=== PATIENT | male | born 1960 | race Caucasian/White ===

== ENCOUNTER → 2020-03-16 15:15 | Outpatient (BNVA) | payer MEDICAID, SELFPAY | PROVIDERS: Referring Provider Registered Nurse; Visit Provider Orthopaedic Surgery | DX: M25.569 Pain in unspecified knee (principal); M17.11 Unilateral primary osteoarthritis, right knee | CPT/HCPCS: 73560; 73565 ==

== ENCOUNTER 2021-12-23 19:11 | Emergency (ER) | payer MEDICAID, SELFPAY ==
--- NOTE | 2021-12-23 19:12 | XRR_ITS ---
PROCEDURE INFORMATION: Exam: XR Left Hip Exam date and time: 12/23/2021 7:19 PM Age: 61 years old Clinical indication: Hip pain; Left hip; Additional info: Fall, left hip pain TECHNIQUE: Imaging protocol: XR Left hip. Views: 2 or 3 views hip with pelvis when performed. COMPARISON: No relevant prior studies available. FINDINGS: Bones/joints: Unremarkable. No acute fracture. Soft tissues: Unremarkable. XR/XR hip LT 2-3V wo/w pel* [id number] IMPRESSION: No acute findings.
--- NOTE | 2021-12-23 19:12 | W.ED.GENADLT ---
HPI - General Adult General: Stated complaint: fall hip pain Time Seen by Provider: 12/23/21 19:12 PFSH ED PFSH: Social History Smoking and tobacco status: current every day smoker smokeless tobacco Alcohol intake: current Alcohol intake frequency: holidays/special occasions only Discharge Plan Discharge Condition: Stable Prescriptions: No Action No Known Home Medications 0RF Coding Level of Care Code ED Customer Support Engineer for Mary Beth Coles
[2021-12-23 19:15] VITALS: BP 136/82; PULSE 104; RESP 18; TEMP 36.7; O2SAT 93; BMI 29.8
--- NOTE | 2021-12-23 19:20 | XRR_ITS ---
PROCEDURE INFORMATION: Exam: XR Lumbosacral Spine Exam date and time: 12/23/2021 7:28 PM Age: 61 years old Clinical indication: Low back pain; Additional info: Fall, low back pain TECHNIQUE: Imaging protocol: XR of the lumbosacral spine. Views: 2 or 3 views. COMPARISON: CR XR hip LT 2-3V wo/w pel* [id number] 12/23/2021 7:19 PM FINDINGS: Bones/joints: Moderate to severe lower lumbar spine disc space narrowing and productive degenerative endplate changes. Soft tissues: Unremarkable. XR/XR lumbar spine 2-3V* [id number] IMPRESSION: 1. Negative for fracture or dislocation 2. Moderate to severe lower lumbar spine disc space narrowing and productive degenerative endplate changes.
--- NOTE | 2021-12-23 19:20 | W.ED.FALL ---
HPI - Fall General: Chief Complaint: Fall Stated Complaint: fall hip pain Time Seen by Provider: 12/23/21 19:12 History of Present Illness: Mr. Resendiz is a 61-year-old gentleman not on anticoagulation who presents due to fall with back and hip injury. He reports that he went to sit down while at the bull riding event and his chair collapsed along with the bleachers. He fell to the ground approximately 3 feet and landed primarily on his low back and left hip. He did immediately have mild pain however was able to ambulate and since that time pain is increased. He denies head strike or loss of consciousness. He denies other injuries. Intensity of pain is moderate and worse with palpation and movement. He did receive analgesia by EMS. He denies distal numbness or tingling. He denies weakness. No other specific changes in health, exacerbating, or alleviating factors identified. Onset (ago): minute(s) Fall from: chair Fall witnessed: yes, by bystander Place fall occurred: other Loss of consciousness: None Prolonged down time: no Symptoms prior to fall: none Review of Systems General: Reports: 10 or more systems reviewed and unremarkable except in HPI and below PFSH ED PFSH: Medical History No significant past medical history Surgical History No significant past surgical history Social History Smoking and tobacco status: current every day smoker smokeless tobacco Alcohol intake: current Alcohol intake frequency: holidays/special occasions only Physical Exam Const: COMMON NORMALS: alert GENERAL APPEARANCE: cooperative and well developed HENMT: COMMON NORMALS: normocephalic and atraumatic HEAD & SCALP: normocephalic and atraumatic Eye: COMMON NORMALS: conjunctivae normal CONJUNCTIVA: Yes conjunctivae normal SCLERA: sclerae normal Neck/C-Spine: COMMON NORMALS: supple GENERAL: Yes trachea midline Resp: COMMON NORMALS: No use of accessory muscles EFFORT & INSPECTION: Yes able to speak in complete sentences Cardio: COMMON NORMALS: regular rate and regular rhythm RATE: regular rate RHYTHM: regular rhythm GI: COMMON NORMALS: Soft to palpation PALPATION: Yes Soft to palpation and No Tenderness to palpation present (GI) PERCUSSION: normal to percussion Extremity: NARRATIVE EXTREMITY EXAM: Left lateral hip tender to palpation. Lumbar spine tender to palpation. Left knee tender to palpation. GENERAL: Yes normal exam except as noted and No edema Neuro: COMMON NORMALS: moves all extremities SENSORIUM/ORIENTATION: Yes alert and No Orientation impaired Psych: COMMON NORMALS: mental status grossly normal and Normal thought process present THOUGHT PROCESS: Normal thought process present Course ED course: - Patient was seen and evaluated by me at bedside - Patient placed on cardiac monitors, IV access obtained - Initial evaluation notable for exam as above. Head to toe exam performed. Tender to palpation and range of motion of hip and knee. - Analgesia and symptom treatment given - Imaging notable for no acute fractures identified. - Upon serial reexamination after treatment the patient was improved. He was able to ambulate. - Based on patient history, evaluation, and testing as interpreted the most likely cause of the patient's condition is fall with soft tissue injury/contusion - The results of ED evaluation were discussed with the patient including prescriptions and/or symptomatic cares (if applicable) including appropriate and responsible use, followup plan, and return precautions. The patient verbalized understanding and felt safe for discharge. - Patient discharged in satisfactory condition. Note: Click bubbles or prepopulated [place] in note writing are used for assistance with data collection and billing and are inherently more limited than narrative and other text portions of this note. Please use narrative for additional clinical history and defer to narrative/free test for any case of contradictory information. If information appears in only free text or click bubble it should be considered present or absent as reported. Please contact note display card writer for clarifications of clinical information or contradictory information. MDM is a brief summary, contradictory or erroneous seeming information should be clarified and full note should be reviewed. Vital Signs: Vital signs: Vital Signs Temperature 98.0 F 12/23/21 19:15 Pulse Rate 92 12/23/21 21:11 Respiratory Rate 20 H 12/23/21 21:11 Blood Pressure 125/85 12/23/21 21:11 Pulse Oximetry 94 12/23/21 21:11 MDM - Fall Medical Decision Making 61-year-old gentleman who went to sit in the chair on bleachers when chair collapsed and he fell on left hip. Ambulatory afterwards. X-rays negative for acute fracture. Satisfactory for outpatient management. Medical Records I reviewed the patient's medical records. Lab Data I reviewed the patient's lab results. Radiology Impressions Hip/Pelvis X-Ray 12/23/21 19:12 IMPRESSION: No acute findings. Lumbar Spine X-Ray 12/23/21 19:20 IMPRESSION: 1. Negative for fracture or dislocation 2. Moderate to severe lower lumbar spine disc space narrowing and productive degenerative endplate changes. Discharge Plan Discharge Patient Disposition: Home Clinical Impression: Fall, Back pain, Acute hip pain Condition: Stable Prescriptions: New oxycodone 5 mg tablet 5 mg PO Q4H PRN (Reason: pain) Qty: 6 0RF No Action No Known Home Medications 0RF Discharge Orders: Discharge ED (Routine); Ordered 12/23/21 Ordered By: Flo Baltazar Discharge Diet: Usual diet Discharge Activity: Increase activity as tolerated Patient Instructions: Acute Low Back Pain (ED), Hip Pain (ED), Opioid Safety Activity Restrictions/Additional Instructions: Thank you for visiting the emergency department. You were seen and evaluated for fall with back pain and hip pain. No bony fracture was identified on imaging. Therefore, there is no indication for hospitalization at this time. You may use [id number] medications for symptoms however please do not exceed the daily recommended dosage and please keep in mind that many namebrand medications contain the same active ingredients. You will be given a prescription for oxycodone, this is an opioid, do not combine it with other sedating medications or operate any motor vehicle/machinery while under the influence. Additionally a common side effect is constipation. Please follow-up with your primary care provider. Please return to the emergency department for any new weakness, numbness, uncontrolled pain, or anything else that you are concerned about and feel needs emergency department evaluation. Coding Level of Care Code ED Manager Transportation for Mary Beth Coles
[2021-12-23 19:26] VITALS: BP 137/90; PULSE 100; RESP 12; O2SAT 92
[2021-12-23 20:39] VITALS: RESP 20
[2021-12-23] MEDS: fentaNYL 50 mcg/mL INJ 2mL IVP (20:39)
[2021-12-23] MEDS: methocarbamol 750 mg Tablet PO (20:46)
[2021-12-23] MEDS: ketorolac 30 mg/mL INJ 15 MG IVP (20:46)
[2021-12-23] MEDS: acetaminophen 500 mg Tablet 1000 MG PO (20:46)
[2021-12-23 21:11] VITALS: BP 125/85; PULSE 92; RESP 20; O2SAT 94
== END 2021-12-23 21:17 | disposition home or self-care (01) ==
PROVIDERS: Emergency Provider Emergency Medicine
DX: M25.552 Pain in left hip (principal); F17.210 Nicotine dependence, cigarettes, uncomplicated; M51.36 Other intervertebral disc degeneration, lumbar region; W07.XXXA Fall from chair, initial encounter
CPT/HCPCS: 72100; 73502; 96374; 96375; 99284; J1885; J3010

== ENCOUNTER 2023-06-07 14:16 | Outpatient (CLI) | payer MEDICAID, SELFPAY ==
--- NOTE | 2023-06-07 14:26 | XR_ITS ---
WS: [id number] Exam: [place] [id number] Date/Time of Exam: 06/07/2023 2:26 PM Reason For Exam: right shoulder/arm injury There is a fracture through the surgical neck of the humerus with early callus formation. There appea rs to be a anterior inferior dislocation of the humeral head. There is also some medial displacement of the humeral head in relationship to the humeral neck. Old healed fracture of the RIGHT clavicle. O steopenia. Soft tissues are unremarkable. IMPRESSION: 1. Displaced fracture of the surgical neck of the humerus with some early callus formation suggesting the fracture is probably several days old. 2. Anterior inferior dislocation of the humeral head.
--- NOTE | 2023-06-07 14:26 | XR_ITS ---
WS: [id number] Exam: XR shoulder RT min 2V* [id number] Date/Time of Exam: 06/07/2023 2:26 PM Reason For Exam: right shoulder injury There is a displaced fracture through the surgical neck of the humerus with early callus formation. T here is medial displacement of the humeral head in relationship to the neck. There is also anterior i nferior dislocation of the humeral head. Healed RIGHT clavicle fracture. Soft tissues are unremarkabl e. IMPRESSION: 1. Displaced fracture through the surgical neck of the humerus with callus formation suggesting this fracture is several days old. 2. Anterior-inferior dislocation of the humeral head.
== END 2023-06-07 14:17 | disposition home or self-care (01) ==
PROVIDERS: PCP Family Medicine; Visit Provider Family Medicine
DX: S42.211A Unspecified displaced fracture of surgical neck of right humerus, initial encounter for closed fracture (principal); S43.014A Anterior dislocation of right humerus, initial encounter; X58.XXXA Exposure to other specified factors, initial encounter; Z00.00 Encounter for general adult medical examination without abnormal findings; Z12.5 Encounter for screening for malignant neoplasm of prostate; E78.5 Hyperlipidemia, unspecified; Z59.00 Homelessness unspecified
CPT/HCPCS: 73030; 73060; 80053; 80061; 83036; 85025; 86480; 86705; 86706; 86709; 86803; 87340; 87806; G0103

== ENCOUNTER → 2023-06-12 09:25 | Outpatient (BNVA) | payer MEDICAID, SELFPAY | PROVIDERS: PCP Family Medicine; Visit Provider Physician Assistant | DX: S42.291A Other displaced fracture of upper end of right humerus, initial encounter for closed fracture (principal); W18.09XA Striking against other object with subsequent fall, initial encounter; Z59.00 Homelessness unspecified | CPT/HCPCS: 73060; 99203 ==

== ENCOUNTER 2023-06-12 14:48 | Outpatient (CLI) | payer MEDICAID, SELFPAY | END 2023-06-12 14:49 | disposition home or self-care (01) | LOC: SPT 14:49 | PROVIDERS: PCP Family Medicine; Visit Provider Physician Assistant | DX: Z46.89 Encounter for fitting and adjustment of other specified devices (principal); S42.309D Unspecified fracture of shaft of humerus, unspecified arm, subsequent encounter for fracture with routine healing; X58.XXXD Exposure to other specified factors, subsequent encounter | CPT/HCPCS: 97760; L3670 ==

== ENCOUNTER 2023-06-22 09:18 | Outpatient (CLI) | payer MEDICAID, SELFPAY ==
--- NOTE | 2023-06-22 09:45 | USCV_ITS ---
Jase Resendiz Age: 63 Gender: M : 1960 Exam Date: 06/22/2023 09:39 Ordering Phys: Nancy Benavides MD Technologist: Exam Location: [facility] [place] Indication: murmur BP: 125 / 85 HR: 76 Rhythm: Sinus Technical Quality: Adequate MEASUREMENTS (Male / Female) Normal Values 2D ECHO LV Diastolic Diameter PLAX 4.8 cm 4.2 - 5.9 / 3.9 - 5.3 cm LV Systolic Diameter PLAX 2.2 cm IVS Diastolic Thickness 1.2 cm 0.6 - 1.0 / 0.6 - 0.9 cm IVS Systolic Thickness 1.7 cm LVPW Diastolic Thickness 1.1 cm 0.6 - 1.0 / 0.6 - 0.9 cm LVPW Systolic Thickness 1.6 cm LVOT Diameter 2.0 cm LV Ejection Fraction 2D Teich 84.0 % LV Ejection Fraction MOD 2C 83.0 % LV Ejection Fraction 2C AL 84.5 % LA Diameter 4.3 cm IVC Diameter 2.0 cm M-MODE Aortic Annulus Diameter 3.4 cm LA Ao Ratio MM 1.4 MV E Point Septal Separation 0.5 cm DOPPLER AV Peak Velocity 189.7 cm/s LVOT Peak Velocity 124.0 cm/s AV Area Cont Eq vti 2.2 cm squared AV Area Cont Eq pk 2.1 cm squared MV Area PHT 5.0 cm squared Mitral E to A Ratio 1.3 MV E' Velocity 60.5 cm/s Mitral E to MV E' Ratio 10.1 Mitral E to LV E' Lateral Ratio 8.3 Mitral E to LV E' Septal Ratio 12.8 TR Peak Velocity 150.7 cm/s TR Peak Gradient 9.1 mmHg TV Peak E Velocity 85.0 cm/s Right Atrial Pressure 3.0 mmHg Pulmonary Artery Systolic Pressu 12.1 mmHg RV Acceleration Time 0.2 s FINDINGS Left Ventricle Left ventricle is normal size. LV systolic function is normal with EF of 60 to 65%. No regional wall motion abnormalities are seen. Right Ventricle Normal in size and function Right Atrium Normal in size Left Atrium Dilated Mitral Valve Structurally normal mitral valve Aortic Valve Structurally normal aortic valve. Mild aortic stenosis with mean gradient across aortic valve of 8 mmHg. Tricuspid Valve Trace tricuspid regurgitation. Insufficient TR jet to calculate RVSP. Pulmonic Valve Not well-visualized Pericardium Normal Aorta Normal in size IVC Not well visualized CONCLUSIONS LV systolic function is normal with EF of 60 to 65%. Left atrial dilation Mild aortic stenosis Trace tricuspid regurgitation No comparison studies are available. Tristen Baez MD (Electronically Signed) Final Date: 03 July 2023 16:35 S
== END 2023-06-22 09:19 | disposition home or self-care (01) ==
PROVIDERS: PCP Family Medicine; Visit Provider Family Medicine
DX: R01.1 Cardiac murmur, unspecified (principal); I35.0 Nonrheumatic aortic (valve) stenosis
CPT/HCPCS: 93306

== ENCOUNTER → 2023-07-18 12:52 | Outpatient (BNVA) | payer MEDICAID, SELFPAY | PROVIDERS: PCP Family Medicine; Visit Provider Family Medicine | DX: D69.6 Thrombocytopenia, unspecified (principal); D75.89 Other specified diseases of blood and blood-forming organs; R17 Unspecified jaundice; G47.30 Sleep apnea, unspecified | CPT/HCPCS: 80053; 82607; 82746; 85025 ==

== ENCOUNTER 2023-07-25 08:23 | Oncology outpatient (recurring) (ONCR) | payer MEDICAID, SELFPAY ==
[2023-07-25 10:34] LABS: Basophils % 0.8 %; Eosinophils # 0.1 10^3/uL (0.0-0.8); Eosinophils % 2.8 %; Hematocrit 32.2 % (37-53); Lymphocytes # 1.1 10^3/uL (0.8-4.8); Lymphocytes % 44.1 %; Mean Corpuscular HGB Conc 33.5 g/dL (30-55); Mean Corpuscular Hemoglobin 33.5 pg (27-33); Mean Platelet Volume 9.3 fL (7.4-10.4); Monocytes # 0.2 10^3/uL (0.2-0.9); Monocytes % 6.3 %; Neutrophils # 1.17 10^3/uL (1.8-7.7); Nucleated Red Blood Cells % 0 %; Platelet Count 48 10^3/cmm (157-399); Red Blood Count 3.22 10^6/uL (3.85-5.65); White Blood Count 2.54 10^3/uL (3.29-11.43)
[2023-07-25 11:08] LABS: Alanine Aminotransferase 12 U/L (0-41); Albumin Level 3.2 g/dL (3.5-5.2); Alkaline Phosphatase 161 U/L (40-130); Anion Gap 10.4 (5-19); Aspartate Amino Transferase 31 U/L (0-40); Blood Urea Nitrogen 11 mg/dL (8-23); Calcium 8.8 mg/dL (8.5-10.5); Carbon Dioxide 25 mmol/L (22-29); Chloride 107 mmol/L (98-107); Ferritin 528 ng/mL (30-400); Globulin 3.1 g/dL (1.3-4.6); Glomerular Filtration Rate 114.6 mL/min (90-130); Glucose 127 mg/dL (65-115); Hepatitis A Antibody IgM Non-Reactive (Nonreactive); Hepatitis B Core AB, Total Non-Reactive (Nonreactive); Hepatitis B Surface AB 3.5 (11.5-1000); Hepatitis B Surface Antigen Non-Reactive (Nonreactive); Hepatitis C Virus Antibody Non-Reactive (Nonreactive); Iron 154 ug/dL (59-158); Lactate Dehydrogenase 187 U/L (135-225); Osmolality Calculated 287 mOsm/kg (285-295); Potassium 4.4 mmol/L (3.5-5.1); Sodium 138 mmol/L (136-145); Thyroid Stimulating Hormone 2.08 uIU/mL (0.27-4.20); Total Bilirubin 2.5 mg/dL (0.15-1.2); Total Protein 6.3 g/dL (6.6-8.7); Vitamin B12 665 pg/mL (232-1245)
[2023-07-25 11:15] LABS: HIV 1 & 2 Antibody Non-Reactive (Non-Reactiv); HIV 1 & 2 Antigen Non-Reactive (Non-Reactiv)
[2023-07-25 11:17] LABS: Free T4 Free Thyroxine 1.01 ng/dL (0.82-1.77); T3 Free 2.1 PG/ML (2.0-4.4)
[2023-07-25 12:17] LABS: Unsaturated Iron Binding < 17 ug/dL (112-347)
[2023-07-26 14:38] LABS: Anti-Nuclear Antibody Screen NEGATIVE (NEGATIVE)
[2023-07-26 21:50] LABS: Lupus DRVVT 1:1 Mix CORRECTED (CORRECTED)
[2023-07-26 21:53] LABS: Lupus DRVVT Confirm POSITIVE (NEGATIVE); Lupus Hexagonal Phas Confirm NEGATIVE (NEGATIVE); PTT-LA-Screen 48 sec (< OR = 40)
== END 2023-08-23 23:59 | disposition home or self-care (01) ==
PROVIDERS: PCP Family Medicine; Visit Provider Internal Medicine Medical Oncology
DX: D61.818 Other pancytopenia (principal); Z79.899 Other long term (current) drug therapy; E78.5 Hyperlipidemia, unspecified
CPT/HCPCS: 36415; 80053; 82247; 82248; 82607; 82728; 82746; 83010; 83540; 83550; 83615; 84439; 84443; 84481; 85025; 85613; 85730; 86038; 86705; 86706; 86709; 86803; 86880; 87340; 87806; 99205

== ENCOUNTER 2023-08-10 08:42 | Outpatient (CLI) | payer MEDICAID, SELFPAY ==
--- NOTE | 2023-08-10 09:30 | US_ITS ---
WS: [id number] RIGHT UPPER QUADRANT ULTRASOUND HISTORY: Thrombocytopenia/pancytopenia COMPARISON: None available. Liver: 14.5 cm in length. Liver is not enlarged. Surface of the liver is slightly irregular and nodul ar. No mass. Portal Vein: Normal hepatopetal flow with monophasic waveform. Gallbladder: Gallbladder is contracted with mild diffuse wall thickening. No pericholecystic fluid. G allbladder wall measures 4 mm. CBD: 0.3 cm Pancreas: Normal size and echogenicity. Right kidney: 9.8 cm in length. Normal size and echogenicity. No hydronephrosis or mass. Aorta and IVC: Unremarkable abdominal aorta and IVC. Very small amount of ascites adjacent to the liver. IMPRESSION: 1. Contracted gallbladder with wall thickening. No gallstones are identified. Gallbladder wall pathol ogy may be related to hepatocellular disease. 2. Cirrhosis is likely. 3. No bile duct dilatation.
== END 2023-08-10 08:43 | disposition home or self-care (01) ==
LOC: RAD 08:42
PROVIDERS: PCP Family Medicine; Visit Provider Internal Medicine Medical Oncology
DX: D61.818 Other pancytopenia (principal); D69.6 Thrombocytopenia, unspecified; K82.0 Obstruction of gallbladder
CPT/HCPCS: 76705

== ENCOUNTER 2023-08-27 09:14 | Inpatient (IN) | payer MEDICAID, SELFPAY ==
[2023-08-27] VITALS (12 sets, daily range): BP systolic 94–111; BP diastolic 54–65; PULSE 83–100; RESP 16–18; TEMP 36.7–37.3; O2SAT 93–98; BMI 29.0; BMI 28.3
--- NOTE | 2023-08-27 09:32 | W.ED.FALL ---
Documented by User: ALEENA Young 08/27/23 14:14 HPI - Fall General: Chief Complaint: ER Hold Stated Complaint: fall 6 days ago Time Seen by Provider: 08/27/23 09:29 Source: patient and EMS Mode of arrival: EMS Limitations: no limitations History of Present Illness: Patient is a 63-year-old male who presents to ED today via EMS for evaluation following a fall that occurred approximately 5 days ago. Patient states lost his balance and fell. He states he never had chest pain, shortness of breath, or difficulty breathing. He states during the fall he injured his right knee and left wrist and has continued to have pain to these areas which has limited his ambulation. He has continued to feel weak. He is residing at a homeless care home. He denies striking his head or LOC. He does not complain of neck or back pain. Patient states he had some leftover oxycodone from a dentist and states he has an allergy to codeine and these medications made him sick. He states he had nausea, vomiting, diarrhea and felt fluish . He states the symptoms have improved after stopping this medication although still feels very weak. Blood pressure upon arrival 105/65. He states a normal BP for him is roughly 110/58. Recently seen by oncology for pancytopenia/thrombocytopenia. Longstanding alcohol history. Last drink was over a year ago. MD complaint: fall Onset (ago): day(s) Fall from: standing Fall witnessed: no Place fall occurred: home Loss of consciousness: None Prolonged down time: no Context: tripped/slipped ( lost balance ) Location of injury - extremities: Left: arm (wrist) and Right: knee Associated symptoms-after fall: Reports no associated symptoms; Denies abdominal pain, chest pain, headache(s) or neck pain Review of Systems Const: Denies: fever(s), chills, body aches, fatigue or malaise Card: Denies: chest pain Resp: Denies: dyspnea GI: Reports: nausea, vomiting and diarrhea; Denies: abdominal pain : Denies: flank pain, difficulty urinating, dysuria, urinary frequency, urinary urgency or urinary hesitancy Musc: Reports: joint pain (R knee, L wrist; chronic R shoulder pain) and limited range of motion; Denies: neck pain or back pain Neuro: Denies: headache(s) PFSH ED PFSH: Medical History (Updated 08/27/23 @ 15:12 by Wong Whelan MD) Pancytopenia Psychiatric care Osteoarthritis of right knee Hyperlipidemia Depression Surgical History History of arthroscopy of right knee Family History Brother Lung disease asbestos Denies family history of Diabetes CAD (coronary artery disease) Clotting disorder Cancer Stroke Social History Smoking and tobacco/nicotine status: current every day tobacco/nicotine user cigarettes Packs smoked per day: 0.5 Years cigarettes smoked: 40 [ Other cigarette details: 1 pack every 2 weeks] and smokeless tobacco Smokeless tobacco user: chewing tobacco Smokeless tobacco details: used at least 40 years Alcohol intake: never Substance/Drug Use: never Marital status: Single Number of children: 1 Number of grandchildren: 0 Current occupational status: disabled 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 Special preet needs: No Physical Exam Const: COMMON NORMALS: patient oriented x3, no limitations and alert GENERAL APPEARANCE: cooperative and other (chronically ill appearing) ORIENTATION/CONSCIOUSNESS: Yes awake, Yes oriented to person, Yes oriented to place and Yes oriented to time HENMT: COMMON NORMALS: normocephalic and atraumatic HEAD & SCALP: normal to inspection, normocephalic and atraumatic FACE & SINUS: normal facial exam NOSE: Other nasal findings present (dried blood to R nare) MOUTH: other (dried blood to lips) THROAT: posterior oropharynx normal Neck/C-Spine: COMMON NORMALS: full ROM GENERAL: Yes normal visual inspection CERVICAL SPINE: No Cervical spine tenderness Chest: COMMONS NORMALS: normal inspection of the chest Resp: COMMON NORMALS: normal respiratory effort and clear to auscultation bilaterally AUSCULTATION: clear to auscultation bilaterally Cardio: COMMON NORMALS: regular rate and regular rhythm RATE: regular rate RHYTHM: regular rhythm GI: COMMON NORMALS: Soft to palpation and non-tender PALPATION: Yes Soft to palpation Extremity: COMMON NORMALS: capillary refill normal, no clubbing, cyanosis or edema, no calf tenderness and no pedal edema GENERAL: Yes normal exam except as noted LEFT UPPER EXTREMITY: Yes wrist (TTP/swelling L distal wrist) Left wrist: Yes ROM (limited secondary to pain) and Yes neurovascular exam (normal) RIGHT LOWER EXTREMITY: Yes knee joint (effusion; limited ROM secondary to pain) Right knee: Yes neurovascular exam (normal) Neuro: COMMON NORMALS: patient oriented x3, moves all extremities, no focal motor deficits and no sensory deficits noted SENSORIUM/ORIENTATION: Yes alert, Yes oriented to person, Yes oriented to place and Yes oriented to time Skin: COMMON NORMALS: no rashes or lesions noted GENERAL SKIN EXAM: no rashes or lesions noted TRAUMA: no lacerations or abrasions Course Vital Signs: Vital signs: Vital Signs Temperature 98 F 08/28/23 04:00 Pulse Rate 95 08/28/23 04:00 Respiratory Rate 17 08/28/23 04:00 Blood Pressure 111/66 08/28/23 04:00 Pulse Oximetry 96 08/28/23 04:00 Oxygen Delivery Me thod Room Air 08/28/23 01:27 MDM - Fall Medical Decision Making XRs negative. Labs showing a platelet count of 41. He does have bleeding to lips/nose that he states is just from dry air . Sodium is low at 123. He did complain of N/V/D and weakness. I spoke to Dr. Whelan and he is consulting with Dr. Ramon/hematology to see if we can keep patient here or if he requires transfer. He later placed admit flags in on patient. Lab Data 08/28/23 04:44 08/28/23 04:44 Radiology Impressions Knee X-Ray 08/27/23 09:38 IMPRESSION: Severe arthritic changes right knee appearing slightly progressed compared to 03/16/2020. Suprapatellar fluid, effusion. Wrist X-Ray 08/27/23 09:38 IMPRESSION: No displaced fracture seen of wrist. Chest X-Ray 08/27/23 15:07 IMPRESSION: No acute findings. Laboratory Results WBC 5.34 10^3/uL (3.29-11.43) 08/27/23 09:55 RBC 2.87 10^6/uL (3.85-5.65) L 08/27/23 09:55 Hgb 9.50 g/dL (11.27-16.99) L 08/27/23 09:55 Hct 27.1 % (37-53) L 08/27/23 09:55 MCV 94.4 fl (82-101) 08/27/23 09:55 MCH 33.1 pg (27-33) H 08/27/23 09:55 MCHC 35.1 g/dL (30-55) 08/27/23 09:55 RDW 17.0 % (12.1-15.1) H 08/27/23 09:55 Plt Count 41 10^3/cmm (157-399) L 08/27/23 09:55 MPV 10.4 fL (7.4-10.4) 08/27/23 09:55 Neut % (Auto) 76.4 % 08/27/23 09:55 Lymph % (Auto) 11.6 % 08/27/23 09:55 [place] % (Auto) 10.9 % 08/27/23 09:55 Eos % (Auto) 0.0 % 08/27/23 09:55 Baso % (Auto) 0.2 % 08/27/23 09:55 Neut # (Auto) 4.08 10^3/uL (1.8-7.7) 08/27/23 09:55 Lymph # (Auto) 0.6 10^3/uL (0.8-4.8) L 08/27/23 09:55 [place] # (Auto) 0.6 10^3/uL (0.2-0.9) 08/27/23 09:55 Eos # (Auto) 0.0 10^3/uL (0.0-0.8) 08/27/23 09:55 Baso # (Auto) 0.0 10^3/uL (0.0-0.1) 08/27/23 09:55 Nucleated RBC % (auto) 0 % 08/27/23 09:55 Nucleated RBCs # 0.0 /100WBC 08/27/23 09:55 Peripher Smr Path Cons Sent for review 08/27/23 09:55 Haptoglobin 45.0 mg/L (30-200) 08/27/23 09:55 PT 23.40 SECONDS (12.1-14.9) H 08/27/23 09:55 INR 2.00 (0.8-1.2) H 08/27/23 09:55 Sodium 123 mmol/L (136-145) L 08/27/23 09:55 Potassium 4.5 mmol/L (3.5-5.1) 08/27/23 09:55 Chloride 94 mmol/L (98-107) L 08/27/23 09:55 Carbon Dioxide 20 mmol/L (22-29) L 08/27/23 09:55 Anion Gap 13.5 (5-19) 08/27/23 09:55 BUN 27 mg/dL (8-23) H 08/27/23 09:55 Creatinine 0.7 mg/dL (0.7-1.2) 08/27/23 09:55 GFR Calculation 114.6 mL/min (90-130) 08/27/23 09:55 Glucose 109 mg/dL (65-115) 08/27/23 09:55 Calculated Osmolality 262 mOsm/kg (285-295) L 08/27/23 09:55 Calcium 9.2 mg/dL (8.5-10.5) 08/27/23 09:55 Total Bilirubin 5.0 mg/dL (0.15-1.2) H 08/27/23 09:55 Total Bilirubin Cancelled 08/27/23 09:55 Direct Bilirubin 2.60 mg/dL (0.00-0.30) H 08/27/23 09:55 Indirect Bilirubin Cancelled 08/27/23 09:55 AST 62 U/L (0-40) H 08/27/23 09:55 ALT 26 U/L (0-41) 08/27/23 09:55 Alkaline Phosphatase 109 U/L (40-130) 08/27/23 09:55 Lactate Dehydrogenase 227 U/L (135-225) H 08/27/23 09:55 Total Protein 6.2 g/dL (6.6-8.7) L 08/27/23 09:55 Albumin 2.8 g/dL (3.5-5.2) L 08/27/23 09:55 Globulin 3.4 g/dL (1.3-4.6) 08/27/23 09:55 Urine Color Leydi (Yellow) 08/27/23 11:38 Urine Appearance Clear (CLEAR) 08/27/23 11:38 Urine pH 6 (5-7) 08/27/23 11:38 Ur Specific [place] 1.010 (1.005-1.030) 08/27/23 11:38 Urine Protein Trace (Negative) 08/27/23 11:38 Urine Glucose (UA) Norm (Normal) 08/27/23 11:38 Urine Ketones Negative (Negative) 08/27/23 11:38 Urine Blood 3+ (Negative) H 08/27/23 11:38 Urine Nitrate Negative (Negative) 08/27/23 11:38 Urine Bilirubin 1+ (Negative) H 08/27/23 11:38 Urine Urobilinogen 4+ mg/dL (Negative) H 08/27/23 11:38 Ur Leukocyte Esterase 1+ (Negative) H 08/27/23 11:38 Urine RBC 15-25 /hpf (0-2) H 08/27/23 11:38 Urine WBC 10-15 /hpf (0-5) H 08/27/23 11:38 Ur Squamous Epith Cells None /hpf (0-5) 08/27/23 11:38 Amorphous Sediment Not Reportable 08/27/23 11:38 Urine Bacteria 1+ /hpf (NONE) H 08/27/23 11:38 Ur Random Sodium < 10 mmol/L 08/27/23 11:38 Ur Random Potassium 30 mmol/L 08/27/23 11:38 Ur Random Chloride 16 mmol/L 08/27/23 11:38 YAMILETH, Poly Interpret Negative 08/27/23 09:55 All radiology interpretation(s) finalized by discharge Discharge Plan Discharge Patient Disposition: Admitted As Inpatient Admit Provider: Wong Whelan Clinical Impression: Thrombocytopenia, Elevated bilirubin, Acute hyponatremia Condition: Stable Coding Level of Care Code ED Cutter Grinder Operator for Chg Fwd Documented by User: Kemar Stuart DO 08/28/23 07:21 HPI - Fall General: Chief Complaint: ER Hold Stated Complaint: fall 6 days ago Time Seen by Provider: 08/27/23 09:29 PFSH ED PFSH: Medical History (Updated 08/27/23 @ 15:12 by Wong Whelan MD) Pancytopenia Psychiatric care Osteoarthritis of right knee Hyperlipidemia Depression Surgical History History of arthroscopy of right knee Family History Brother Lung disease asbestos Denies family history of Diabetes CAD (coronary artery disease) Clotting disorder Cancer Stroke Social History Smoking and tobacco/nicotine status: current every day tobacco/nicotine user cigarettes Packs smoked per day: 0.5 Years cigarettes smoked: 40 [ Other cigarette details: 1 pack every 2 weeks] and smokeless tobacco Smokeless tobacco user: chewing tobacco Smokeless tobacco details: used at least 40 years Alcohol intake: never Substance/Drug Use: never Marital status: Single Number of children: 1 Number of grandchildren: 0 Current occupational status: disabled 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 Labs showing a platelet count of 41. He does have bleeding to lips/nose that he states is just from dry air . Sodium is low at 123. He did complain of N/V/D and weakness. I spoke to Dr. Whelan and he is consulting with Dr. Ramon/hematology to see if we can keep patient here or if he requires transfer. He later placed admit flags in on patient. Chart reviewed and patient discussed with midlevel. Agree with assessment and plan. Medical Records I reviewed the patient's medical records. Lab Data I reviewed the patient's lab results. 08/28/23 04:44 08/28/23 04:44 Radiology Impressions Knee X-Ray 08/27/23 09:38 IMPRESSION: Severe arthritic changes right knee appearing slightly progressed compared to 03/16/2020. Suprapatellar fluid, effusion. Wrist X-Ray 08/27/23 09:38 IMPRESSION: No displaced fracture seen of wrist. Chest X-Ray 08/27/23 15:07 IMPRESSION: No acute findings. Laboratory Results WBC 5.34 10^3/uL (3.29-11.43) 08/27/23 09:55 RBC 2.87 10^6/uL (3.85-5.65) L 08/27/23 09:55 Hgb 9.50 g/dL (11.27-16.99) L 08/27/23 09:55 Hct 27.1 % (37-53) L 08/27/23 09:55 MCV 94.4 fl (82-101) 08/27/23 09:55 MCH 33.1 pg (27-33) H 08/27/23 09:55 MCHC 35.1 g/dL (30-55) 08/27/23 09:55 RDW 17.0 % (12.1-15.1) H 08/27/23 09:55 Plt Count 41 10^3/cmm (157-399) L 08/27/23 09:55 MPV 10.4 fL (7.4-10.4) 08/27/23 09:55 Neut % (Auto) 76.4 % 08/27/23 09:55 Lymph % (Auto) 11.6 % 08/27/23 09:55 [place] % (Auto) 10.9 % 08/27/23 09:55 Eos % (Auto) 0.0 % 08/27/23 09:55 Baso % (Auto) 0.2 % 08/27/23 09:55 Neut # (Auto) 4.08 10^3/uL (1.8-7.7) 08/27/23 09:55 Lymph # (Auto) 0.6 10^3/uL (0.8-4.8) L 08/27/23 09:55 [place] # (Auto) 0.6 10^3/uL (0.2-0.9) 08/27/23 09:55 Eos # (Auto) 0.0 10^3/uL (0.0-0.8) 08/27/23 09:55 Baso # (Auto) 0.0 10^3/uL (0.0-0.1) 08/27/23 09:55 Nucleated RBC % (auto) 0 % 08/27/23 09:55 Nucleated RBCs # 0.0 /100WBC 08/27/23 09:55 Peripher Smr Path Cons Sent for review 08/27/23 09:55 Haptoglobin 45.0 mg/L (30-200) 08/27/23 09:55 PT 23.40 SECONDS (12.1-14.9) H 08/27/23 09:55 INR 2.00 (0.8-1.2) H 08/27/23 09:55 Sodium 123 mmol/L (136-145) L 08/27/23 09:55 Potassium 4.5 mmol/L (3.5-5.1) 08/27/23 09:55 Chloride 94 mmol/L (98-107) L 08/27/23 09:55 Carbon Dioxide 20 mmol/L (22-29) L 08/27/23 09:55 Anion Gap 13.5 (5-19) 08/27/23 09:55 BUN 27 mg/dL (8-23) H 08/27/23 09:55 Creatinine 0.7 mg/dL (0.7-1.2) 08/27/23 09:55 GFR Calculation 114.6 mL/min (90-130) 08/27/23 09:55 Glucose 109 mg/dL (65-115) 08/27/23 09:55 Calculated Osmolality 262 mOsm/kg (285-295) L 08/27/23 09:55 Calcium 9.2 mg/dL (8.5-10.5) 08/27/23 09:55 Total Bilirubin 5.0 mg/dL (0.15-1.2) H 08/27/23 09:55 Total Bilirubin Cancelled 08/27/23 09:55 Direct Bilirubin 2.60 mg/dL (0.00-0.30) H 08/27/23 09:55 Indirect Bilirubin Cancelled 08/27/23 09:55 AST 62 U/L (0-40) H 08/27/23 09:55 ALT 26 U/L (0-41) 08/27/23 09:55 Alkaline Phosphatase 109 U/L (40-130) 08/27/23 09:55 Lactate Dehydrogenase 227 U/L (135-225) H 08/27/23 09:55 Total Protein 6.2 g/dL (6.6-8.7) L 08/27/23 09:55 Albumin 2.8 g/dL (3.5-5.2) L 08/27/23 09:55 Globulin 3.4 g/dL (1.3-4.6) 08/27/23 09:55 Urine Color Ley[place] (Yellow) 08/27/23 11:38 Urine Appearance Clear (CLEAR) 08/27/23 11:38 Urine pH 6 (5-7) 08/27/23 11:38 Ur Specific [place] 1.010 (1.005-1.030) 08/27/23 11:38 Urine Protein Trace (Negative) 08/27/23 11:38 Urine Glucose (UA) Norm (Normal) 08/27/23 11:38 Urine Ketones Negative (Negative) 08/27/23 11:38 Urine Blood 3+ (Negative) H 08/27/23 11:38 Urine Nitrate Negative (Negative) 08/27/23 11:38 Urine Bilirubin 1+ (Negative) H 08/27/23 11:38 Urine Urobilinogen 4+ mg/dL (Negative) H 08/27/23 11:38 Ur Leukocyte Esterase 1+ (Negative) H 08/27/23 11:38 Urine RBC 15-25 /hpf (0-2) H 08/27/23 11:38 Urine WBC 10-15 /hpf (0-5) H 08/27/23 11:38 Ur Squamous Epith Cells None /hpf (0-5) 08/27/23 11:38 Amorphous Sediment Not Reportable 08/27/23 11:38 Urine Bacteria 1+ /hpf (NONE) H 08/27/23 11:38 Ur Random Sodium < 10 mmol/L 08/27/23 11:38 Ur Random Potassium 30 mmol/L 08/27/23 11:38 Ur Random Chloride 16 mmol/L 08/27/23 11:38 YAMILETH, Poly Interpret Negative 08/27/23 09:55 Discharge Plan Discharge Patient Disposition: Admitted As Inpatient Admit Provider: Wong Whelan Clinical Impression: Thrombocytopenia, Elevated bilirubin, Acute hyponatremia Condition: Stable Coding Level of Care Code ED Cutter Grinder Operator for Mary Beth Coles
--- NOTE | 2023-08-27 09:38 | XRR_ITS ---
PROCEDURE INFORMATION: Exam: XR Left Wrist Exam date and time: 08/27/2023 9:59 AM Age: 63 years old Clinical indication: Injury or trauma; Fall; Blunt trauma (contusions or hematomas); Wrist; Left; Additional info: Fall/trauma TECHNIQUE: Imaging protocol: Radiologic exam of the left wrist. Views: 3 or more views. COMPARISON: No relevant prior studies available. FINDINGS: Bones/joints: No displaced fracture nor dislocation seen. Mild degenerative changes. Soft tissues: No metallic foreign body seen. XR/XR wrist LT min 3V* [id number] IMPRESSION: No displaced fracture seen of wrist.
--- NOTE | 2023-08-27 09:38 | XRR_ITS ---
PROCEDURE INFORMATION: Exam: XR Right Knee Exam date and time: 08/27/2023 10:01 AM Age: 63 years old Clinical indication: Injury or trauma; Fall; Blunt trauma; Knee; Right TECHNIQUE: Imaging protocol: Radiologic exam of the right knee. Views: 3 views. COMPARISON: CR XR knees AP WB w RT lmt ORTH 03/16/2020 3:19 PM FINDINGS: Bones/joints: Severe narrowing medial compartment joint space. Marginal spurring. Subchondral sclerotic changes. Mild widening/opening lateral compartment joint space. Mild varus. Mild narrowing patellofemoral joint space. Chondrocalcinosis. Mild lateral positioning proximal tibia relative to the distal femur. No displaced fracture nor dislocation seen otherwise. Soft tissues: Suprapatellar fluid, effusion. No metallic foreign body seen. XR/XR knee RT 3V* [id number] IMPRESSION: Severe arthritic changes right knee appearing slightly progressed compared to 03/16/2020. Suprapatellar fluid, effusion.
--- NOTE | 2023-08-27 09:47 | PC.PHAR ---
PT STATES HAS NOT TAKEN MEDS IN A WEEK DUE TO PAIN MED MAKES HIM SICK. 08/27/23
[2023-08-27 10:03] LABS: Basophils % 0.2 %; Hematocrit 27.1 % (37-53); Lymphocytes # 0.6 10^3/uL (0.8-4.8); Lymphocytes % 11.6 %; Mean Corpuscular HGB Conc 35.1 g/dL (30-55); Mean Corpuscular Hemoglobin 33.1 pg (27-33); Mean Corpuscular Volume 94.4 fl (82-101); Mean Platelet Volume 10.4 fL (7.4-10.4); Monocytes # 0.6 10^3/uL (0.2-0.9); Monocytes % 10.9 %; Neutrophils # 4.08 10^3/uL (1.8-7.7); Neutrophils % 76.4 %; Nucleated Red Blood Cells % 0 %; Platelet Count 41 10^3/cmm (157-399); Red Blood Count 2.87 10^6/uL (3.85-5.65); White Blood Count 5.34 10^3/uL (3.29-11.43)
[2023-08-27 10:23] LABS: Alanine Aminotransferase 26 U/L (0-41); Albumin Level 2.8 g/dL (3.5-5.2); Alkaline Phosphatase 109 U/L (40-130); Anion Gap 13.5 (5-19); Aspartate Amino Transferase 62 U/L (0-40); Blood Urea Nitrogen 27 mg/dL (8-23); Calcium 9.2 mg/dL (8.5-10.5); Carbon Dioxide 20 mmol/L (22-29); Chloride 94 mmol/L (98-107); Globulin 3.4 g/dL (1.3-4.6); Glomerular Filtration Rate 114.6 mL/min (90-130); Glucose 109 mg/dL (65-115); Osmolality Calculated 262 mOsm/kg (285-295); Potassium 4.5 mmol/L (3.5-5.1); Sodium 123 mmol/L (136-145); Total Protein 6.2 g/dL (6.6-8.7)
[2023-08-27 11:40] LABS: LAB Peripheral Smear Sent for Review
[2023-08-27 11:56] LABS: Lactate Dehydrogenase 227 U/L (135-225)
[2023-08-27 12:00] LABS: Blood Urine 3+ (Negative); Glucose Urine UA Norm (Normal); Ketones Urine Negative (Negative); Nitrate Urine Negative (Negative); Protein Urine Trace (Negative); Urine Appearance Clear (CLEAR); Urine Color Amber (Yellow); pH Urine 6 (5-7)
[2023-08-27 12:01] LABS: Add Urine Microscopic? YES; Bilirubin Urine 1+ (Negative); Leukocyte Esterase Urine 1+ (Negative); Urobilinogen Urine 4+ mg/dL (Negative)
[2023-08-27 12:02] LABS: Add Urine Culture? Yes; Bacteria Urine 1+ /hpf; RBC Urine 15-25 /hpf (0-2)
--- NOTE | 2023-08-27 13:25 | P.HP_ITS ---
Providers/Chief Complaint 2 Admitting Physician: Wong Whelan MD Primary Care Provider: Nancy Benavides MD Chief Complaint: fall 6 days ago History of Present Illness Jase Resendiz is a 63 year old male with history of of fall 4 to 5 days ago, and now he had an dizzy and nausea he reports he drinks a fair amount of water, three-quarter to 1 gallon a day.No recent fever. Knees and wrist hurt, which were evaluated in the emergency department. He denies any chest pain, vomiting, diarrhea. He reports no alcohol intake in the last year. He denies any prior history of hyponatremia, but reports he is currently being worked up for blood abnormalities. He has difficulty relating his history during his exam.He reports no chest pain, or shortness of breath. He denies any swelling. Review of Systems 2 Const: Denies: fever(s) or chills Card: Denies: chest pain Resp: Denies: dyspnea GI: Denies: abdominal pain, nausea, vomiting, hematochezia or melena Medications/Allergies Home Medications Medication Instructions Recorded Confirmed Last Taken Type SHOULDER IMMOBILIZER #1 ea 06/12/23 08/27/23 Unknown Rx arm sling #1 ea 07/18/23 08/27/23 Unknown Rx ferrous sulfate 27 mg iron tablet 27 mg PO DAILY PRN Pain 07/25/23 08/27/23 1 Week Ago History ~08/20/23 hydrocodone 5 mg-acetaminophen 325 1 tab PO BID PRN pain 7 days #14 08/14/23 08/27/23 1 Week Ago Rx mg tablet tabs ~08/20/23 sertraline 100 mg tablet (Zoloft) 100 mg PO DAILY #30 tabs 08/20/23 08/27/23 1 Week Ago Rx ~08/20/23 hydroxyzine HCl 50 mg tablet 100 mg PO BEDTIME PRN insomnia 08/27/23 08/27/23 1 Week Ago History ~08/20/23 Allergies Allergy/AdvReac Type Severity Reaction Status Date / Time codeine Allergy sick Verified 08/27/23 09:22 morphine Allergy sick Verified 08/27/23 09:22 Penicillins Allergy sick Verified 08/27/23 09:22 PFSH Acute 2 PFSH: Medical History (Updated 08/27/23 @ 15:12 by Wong Whelan MD) Pancytopenia Psychiatric care Osteoarthritis of right knee Hyperlipidemia Depression Surgical History History of arthroscopy of right knee Family History Brother Lung disease asbestos Denies family history of Diabetes CAD (coronary artery disease) Clotting disorder Cancer Stroke Social History Smoking and tobacco/nicotine status: current every day tobacco/nicotine user cigarettes Packs smoked per day: 0.5 Years cigarettes smoked: 40 [ Other cigarette details: 1 pack every 2 weeks] and smokeless tobacco Smokeless tobacco user: chewing tobacco Smokeless tobacco details: used at least 40 years Alcohol intake: never Substance/Drug Use: never Marital status: Single Number of children: 1 Number of grandchildren: 0 Current occupational status: disabled 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 HEENT: Atraumatic normocephalic. Oropharynx clear Neck is supple no lymphadenopathy thyromegaly Cardiovascular regular rate and rhythm, 2/6 systolic murmur Lungs clear no wheezing or crackles Abdomen obese, nontender. No obvious fluid wave. Difficult to gauge organomegaly. exams deferred Extremities trace edema bilaterally Skin no rash Neuro: Slightly tremulous, but no focal deficits. Data 08/27/23 09:55 08/27/23 09:55 Other Labs: Wrist and knee x-ray evaluated by me no fracture Haptoglobin 45, improved from 10 INR 2.0 Calcium 9.2 Total bilirubin 5 with a direct bilirubin of 2.6 AST 62, ALT 26, alk phos 109 LDH 227 Albumin 2.8 Urinalysis 15-25 reds, 10-15 whites, 1+ bacteria YAMILETH negative I have ordered a CXR A&P Assessment and plan (1) Acute hyponatremia: Patient presents with acute hyponatremia Is somewhat fluid overloaded Will go ahead and perform urine electrolytes As serum and urine osmolality is a send out will not do that at this time. As he appears somewhat fluid overloaded and has history of liver disease we will give him Lasix 40 mg IV x 1, and fluid restrict to 1000 cc fluid over 24 hours. Check sodium around 5 PM, further treatment as needed Fall precaution BMP tomorrow. Check CXR (2) Pancytopenia: Patient with evidence of leukopenia, anemia, thrombocytopenia. Generally there was a concern for hemolysis. It appears with his Beverley being negative, normal haptoglobin currently, that this may be mainly secondary to liver disease. TTP/ITP is less likely. CBC tomorrow Check ammonia (3) Cirrhosis: See findings under hyponatremia Plan UTI Rocephin, urine culture Other medical problems as listed in PMH Full code SCD's for DVT prophylaxis, pharmacologic contraindicated secondary to anemia, decreased platelets. Attestations 2 Medical Necessity Statement*: Will need less than 2 midnight stay for evaluation and treatment of Clinutren Diagnoses Acute hyponatremia E87.1 Pancytopenia D61.818 Cirrhosis K74.60 Time Spent (min) 47
--- NOTE | 2023-08-27 15:07 | XRR_ITS ---
PROCEDURE INFORMATION: Exam: XR Chest Exam date and time: 08/27/2023 3:12 PM Age: 63 years old Clinical indication: Condition or disease; Other: Hyponatremia TECHNIQUE: Imaging protocol: Radiologic exam of the chest. Views: 1 view. COMPARISON: [place] [id number] 06/12/2023 9:38 AM FINDINGS: Lungs: No consolidation. Pleural spaces: No pleural effusion. No pneumothorax. Heart/Mediastinum: No cardiomegaly. Bones/joints: Old proximal right humeral fracture with dislocation. Old callused right clavicular fracture noted. XR/XR chest 1V portable [id number] IMPRESSION: No acute findings.
[2023-08-27] MEDS: FUROsemide 10 mg/mL SDV 4mL 40 MG IVP (15:29)
[2023-08-27] MEDS: cefTRIAXone 2,000 MG in sodium chloride 0.9% (plus) 50 ML 100 MG IV (15:40)
--- NOTE | 2023-08-27 15:47 | PC.NURSE ---
SPOKE WITH DR. CHAPMAN AND INQUIRED ON NEED FOR BLOOD CULTURES PRIOR TO ANTIBIOTICS. PER DR. CHAPMAN, BLOOD CULTURES NOT NEEDED IF PATIENT WAS AFEBRILE. TEMP 97.9 ORAL
[2023-08-27 15:59] LABS: Potassium, Radom Urine 30 mmol/L
[2023-08-27 16:00] LABS: Urine Random Chloride 16 mmol/L; Urine Random Sodium < 10 mmol/L
[2023-08-27 17:09] LABS: Ammonia 20 umol/L (16-60)
[2023-08-27] MEDS: pantoprazole DR 40 mg Tablet PO (18:50)
[2023-08-27 18:55] LABS: Sodium 130 mmol/L (136-145)
[2023-08-28] VITALS (7 sets, daily range): BP systolic 95–120; BP diastolic 41–82; PULSE 86–98; RESP 16–19; TEMP 36.4–37.3; O2SAT 93–96
--- NOTE | 2023-08-28 01:34 | PC.NURSE ---
Patient pulled IV out in left forearm at 2330. I (Nakia Akins RN) inserted a new 20G in L forearm area at 0005. Rounded on patient at 0130 and patient had pulled out IV again, not on accident. Patient does not have any IV medications due until 1530 on 08/28/2023. Discussed with charge nurse and the decision was made to wait on re-inserting IV and notify day shift to see if we can change IV antibiotics to IM injection Rocephin, with the attending in the AM. [id number]0549284445246686748968202007299885249308694922211692700703827111631363210 [id number]0320757120008293359578175756511916464332440317857432043624130582133064207610612331657462017624427930855751919128150292459596858017435254733387501278276472472784085462701830087315881371962183469888399278973919356124949 9733226682982369302702145915086444930547730260223376813312321777557867053413733110677916597504825826253557263888899919161136752400848504774071651526491021731300751393422937190293503375792408718376810708568190537866307566867555892059107617101857035549 6841294361012086412352476757441145545067310677046615189477984623142972494795913914731505634667416919943827884400127486641669634325766510357976775622054266363287573859824617389313359000805590860329998789888895659529057214853019106466490758301395946787 9727049263842020215401011209470478541831295022465114696181279356044926523099180402375480203229706147619212560038860375729879396163275035630144127182110107894026873430496191956754707599523288078829218582816585507967047555126421605182165772349825567638 5601053455784224261609818060220042843331952225591583307237830928433629498832135138344712307726637552013389610927330922065485851274096921372328122697322323766478478183874521560423368989011952645265417337905607920866133334244933053109454828592017332578 8529403853525820687969588600050095741438226812324242581895265368173879696425624865496893382938653068604084051228252989798782977494419934109832579877818674901698396464158513987418688938264293097238989924975275861105610882422178798888960765931237041884 9656244932024084557772376945833327210910462817186750404041292211550942524941505847808728458929702941578197723710758039699458833716556481538789116713703040392640310604487318495621856873238792087973396637337349840534372089847875760445713611305915872467 0286734806468429508950972175568663164852755404473027287000931891742647424615718656191182098915009416503255542157102945600106809220334857047185355910582821255630945218296714710836618919083307677069395391530259279591261445480603084244779768915812960224 5389024999603639966180438051226918386935579881546191250686266682897651766079195951456249601165214854630829346461913582703498277015763379386746620434477058624823105148938271633144281099255879156167711461358877600335547659679853131070246137051351616546 7148517906480091668315349679705230169446412291508730198303175013505417337286679293457152077884406169100032808784706179781596652686901458122980080666485703701146059733172002328911706294776212921277834582106687860159856641957992301034666715297433835954 1828682348414210617858087225048268931557596809653626151743655957617549087636729858640961492585207857297879820016882268151811808150009082857292934052854171988611730917381211150668156498504308242687738404647738599407091204809311921387520771386563510824 2500345358095780885994567858474849327682235068270950043948066000721969133195635493387588761208210587916386201226893703216320926519838601328290892856103627141169044867751012274439170842425738998421425882438184702751015955138721267063564834723234551831 3843841419423941257906304599885836581780806945118662605508146379682968141411047463974096103239372978901734701143761675813054402152893933670597640832728157654899212224998754787693356146611942318641735532903889051390362580417856180224827302474392538226 1428141629124943158438867410752075768547843020830361536045655866640846780252588242919648403766776247811118417216970824941679802472411223981013057040184145343771433839753704294265071262316465755621775605634392650780928619789648392669665005998518827062 2732179429098648791097757136473945879765597410351460631108820816114171645155359961989850955849472288977220559306209492880349048327183933301717676299596011522266865760884671778833577396823309560824601065499515334098082027937512174593091140971419134094 4433813589817955594774286183533544453780699288371170491878478173153097621369164188308671696717073500581515853181154477785321675082648955081941224583803827470233447361485621317435707605956196067140665388190020686034811173250662081141697267652818994435 8314616957137738116090884706859771107206322287581460319227017015216254606314125624255490623653056512904350805691752304388364939248001016272041550847921343255926643634415312788420073008050045609801021221425860368839446121727460017301466253855278129357 0904153382115513000451024666523175954401326107407640435729227793901996072681717373476144866966052309835102951705279903429819322186872307469595928347153725451338258506070387348522223570932834692338619328576956846376029346959933404024690940591448940869 5222246628398536476650367698015016629370920049938659024257391626582351296788604026198664385101854542564324392804669438410712405758026014690144615601109931889529209843189490062814737031378123398355987634419330590926631399579718518803134532657258921116 3724711868716737463598103035223544190656472481000291871759333532878161637008546505906401678378658534874140915545641544693547902312611488158088201846974960743934576029762885486359188104212369702305269877625313556043869828193637931260722179520738615217 0928985202943458094018555373154422856320591584568951669287917385954008421288083898684454536631277175356715141683319540055339940097162060808281581705117367211178436602509264149630017141523903956819178013704475500306473403237208381123811861535658067499 8665159890261000711453319361910134634834210452922564010044866833530008111932375800315503232687979534013395053919147546229394871520576660617543553372835959869590082796921208509440543095890956732329458007144029747790134150245836087814356942449124468958 5724834004850500912163389005845290715270701585885644188873949723852610801532448409648784564225554609537268782098953992525365771887659075814640845911241121064351930764630899334100369763201983124118140866438947778668651995563095520465759894951677171493 5215137984100560411772474648375910049688339361839955198241538877056953150271206770364917220546025275344660565805586143327423547990538302886557759472250092919571115918380284942939857511859432899406712947093388194008064548568594899546455113814295270559 6398089332803109887481360050638144663710402903607104547260573450814079441569598399038815231041645730875371962588538423821230831352190441222140076178361806437061267267075889293780825370011966750774512053190591247810506001173081969043063607899095382661 4767671016667026513865825951906768023483297212376675629599173361677860003552687510948505778402301762143113550101179605195919099942222883133464106909473255862186451961981130693769073823226823163419799594536389975700395595524549655805582502843893605835 2565682930111659036415321750617715101200623549515985476862016815300891705070570968921383283674434929749990828544599250389048314584826413474508907080127864217837818426589059420800563491639274236335589735883604573752403854440847344315731466404222109691 0977837042484866659401031325805943340460439984619724103259333314168835034348592341144599586865196858810163852762229938844610245081990854502311816762462676333644807342018866080003944774266448301172829021323370887156032131368853077905676856801506314
[2023-08-28 05:15] LABS: Basophils % 0.5 %; Eosinophils % 0.2 %; Hematocrit 28.3 % (37-53); Lymphocytes # 0.6 10^3/uL (0.8-4.8); Lymphocytes % 8.5 %; Mean Corpuscular HGB Conc 34.6 g/dL (30-55); Mean Corpuscular Hemoglobin 32.1 pg (27-33); Mean Corpuscular Volume 92.8 fl (82-101); Monocytes # 0.5 10^3/uL (0.2-0.9); Monocytes % 7.6 %; Neutrophils # 5.34 10^3/uL (1.8-7.7); Neutrophils % 82.7 %; Nucleated Red Blood Cells % 0 %; Platelet Count 52 10^3/cmm (157-399); Red Blood Count 3.05 10^6/uL (3.85-5.65); Red Cell Distribution Width 16.9 % (12.1-15.1); White Blood Count 6.45 10^3/uL (3.29-11.43)
[2023-08-28 05:39] LABS: Alanine Aminotransferase 28 U/L (0-41); Albumin Level 2.8 g/dL (3.5-5.2); Alkaline Phosphatase 101 U/L (40-130); Anion Gap 14.2 (5-19); Aspartate Amino Transferase 56 U/L (0-40); Blood Urea Nitrogen 30 mg/dL (8-23); Carbon Dioxide 23 mmol/L (22-29); Chloride 95 mmol/L (98-107); Globulin 3.4 g/dL (1.3-4.6); Glomerular Filtration Rate 98.3 mL/min (90-130); Glucose 88 mg/dL (65-115); Magnesium 1.8 mg/dL (1.7-2.3); Osmolality Calculated 272 mOsm/kg (285-295); Potassium 4.2 mmol/L (3.5-5.1); Slide Review Slide Review Perform; Sodium 128 mmol/L (136-145); Total Bilirubin 5.8 mg/dL (0.15-1.2); Total Protein 6.2 g/dL (6.6-8.7)
--- NOTE | 2023-08-28 07:51 | CT_ITS ---
WS: [id number] CT HEAD NONCONTRAST HISTORY: fall , confusion TECHNIQUE: Contiguous axial imaging performed through the brain in 2.5 mm imaging. Bone and soft tiss ue windows. Sagittal and coronal reformats reviewed. All CT scans at [facility] use at least one of these dose optimization techniques: automated exposure control; mA and/or kV adjustment per pa tient size (includes targeted exams where dose is matched to clinical indication); or iterative recon struction. DLP: 1050.09 mGy.cm COMPARISON: None available. No acute intracranial hemorrhage, midline shift or mass effect. Moderate atrophy and small vessel ischemic disease. No focal new area of sulcal effacement. There is also mild cerebellar atrophy. Ventricles: Normal size with no hydrocephalus. Paranasal sinuses: As visualized are clear. Mastoid air cells: Well pneumatized. Calvarium and scalp: Skull is intact with no soft tissue edema or swelling. IMPRESSION: 1. No acute intracranial hemorrhage or edema. 2. Moderate atrophy and small vessel ischemic disease.
--- NOTE | 2023-08-28 08:45 | P.PN_ITS ---
Documented by User: mynor Holloway 08/28/23 08:52 Subjective 2 Subjective: She was evaluated this morning while lying in bed on room air. Nursing staff states last night patient sundown and became confused and removed all IVs. Patient is alert and oriented x 4 this a.m. and able to answer questions appropriately. Denies any pain, shortness of breath, fever, chills at this time. Medications: Reviewed: Yes Vitals/I&O/Wt Last Vital Signs Temp 98 F 08/28/23 04:00 Pulse 90 08/28/23 07:36 Resp 17 08/28/23 07:36 BP 100/49 08/28/23 07:36 Pulse Ox 96 08/28/23 07:36 O2 Del Method Room Air 08/28/23 07:36 08/27/23 08/28/23 08/28/23 22:59 06:59 14:59 Intake Total 290 / 290 500 / 790 Output Total 300 / 300 Balance -10 / -10 500 / 490 Weight last 48 hrs Weight 79.016 kg Weight 79.515 kg Weight 81.647 kg Physical Exam 2 Narrative: General: Alert, oriented, ill-appearing, jaundiced HEENT: Atraumatic normocephalic. Oropharynx clear Neck is supple no lymphadenopathy thyromegaly Cardiovascular regular rate and rhythm, 2/6 systolic murmur Lungs clear no wheezing or crackles Abdomen obese, nontender. Active bowel sounds throughout. : deferred Extremities 1+ pitting edema lower extremity Skin no rash Neuro: Slightly tremulous, but no focal deficits. Data 08/28/23 04:44 08/28/23 04:44 Other Labs: Sodium 128 A&P Assessment and plan (1) Acute hyponatremia: Nursing staff, patient was sundowning last night. Removed all IVs and became confused. Will perform CT head today. Sodium 128 this a.m. Continue fluid restriction 1000 cc fluid over 24 hours CBC BMP in AM. Fall precautions. (2) Pancytopenia: Labs improving Ammonia level 20 CBC BMP in AM. (3) Cirrhosis: As per #1 (4) UTI (urinary tract infection): Continue Rocephin IV, urine culture pending results Plan Plan is stated above. Will perform CT head today due to increased confusion last night. Ammonia level normal. Patient's overall labs are improving. Will check CBC BMP tomorrow morning. Full code SCD's for DVT prophylaxis, pharmacologic contraindicated secondary to anemia, decreased platelets. Coding Level of Care Code 38144 Diagnoses Acute hyponatremia E87.1 Pancytopenia D61.818 Cirrhosis K74.60 UTI (urinary tract infection) N39.0 Time Spent (min) 25 Documented by User: Wong Whelan MD 08/28/23 12:57 Subjective 2 Subjective: She was evaluated this morning while lying in bed on room air. Nursing staff states last night patient sundown and became confused and removed all IVs. Patient is alert and oriented x 4 this a.m. and able to answer questions appropriately. Denies any pain, shortness of breath, fever, chills at this time. He has been hallucinating a little bit this afternoon as well. He was reevaluated at this time, around noon Data 08/28/23 04:44 08/28/23 04:44 A&P Assessment and plan (1) Acute hyponatremia: Nursing staff, patient was sundowning last night. Removed all IVs and became confused. Will perform CT head today. Sodium 128 this a.m. Continue fluid restriction 1000 cc fluid over 24 hours CBC BMP in AM. Fall precautions. Secondary to hallucinations, continue to monitor closely and changed to regular admission. Check sodium this afternoon. (2) Pancytopenia: (3) Cirrhosis: As per #1 Ammonia level was normal (4) UTI (urinary tract infection): Plan Significant fall risk secondary alcoholism, DJD, encephalopathy. Therapy consultations ordered. Plan is stated above. Will perform CT head today due to increased confusion last night. Ammonia level normal. Patient's overall labs are improving. Will check CBC BMP tomorrow morning. Full code SCD's for DVT prophylaxis, pharmacologic contraindicated secondary to anemia, decreased platelets. Attestations 2 Medical Necessity Statement*: Needs continued hospitalization secondary to acute encephalopathy with hallucinations Diagnoses Acute hyponatremia E87.1 Pancytopenia D61.818 Cirrhosis K74.60 UTI (urinary tract infection) N39.0 Time Spent (min) 25
--- NOTE | 2023-08-28 09:45 | PC.CHAP ---
Pastoral Care Encounter/Spiritual Assessment Type of Contact [] Declined fishing instructor visit [] Patient/Family/Request visit [] Outpatient visit [] Follow-up visit [] Physician referral [] Code/Alert [x] Routine visit [] Staff referral [] Actively dying [] Patient sleeping [] Family support [] [] Out of room [] Palliative care [] [] Receiving care in room [] Pre-surgical visit [] Trauma [] Long length of stay [] ICU visit [] Other: Relational/Emotional Strength [x] Patient feels connected with others/family/visitors/staff [] Distress [] Loneliness/isolation [] Abandonment Spirituality of Patient [] Person of Enedina [] Attends Bahai of their [place] [x] Believes in Prayer [] Reads Bible or Sikhism materials [] There are Spiritual issues to be addressed Electronics System Mechanic Interventions [x] Prayer [x] Active listening [] Non-anxious presence [x] Spiritual/emotional support [] Crisis/trauma care [] Spiritual counseling [] Bereavement support [] Provided bereavement packet [] Provided Bible/devotional materials [] Provided toy/stuffed animal, coloring book to patient or family member [] Provided Communion [] Anointing/[place] [] Salvation [x] Completed spiritual assessment [] Other: Impact on Illness or Injury [] Angry [] Fearful [] Anxious [] Often cries [] Exhaustion [] Unable to work [] Unable to attend gnosticist [] Unable to walk/stand [] Unable to read [] Unable to drive [] Unable to eat/drink [] Unable to sleep [] Unable to be with family [] Patient intubated [] Other: Summary Time spent with patient 5 min
[2023-08-28] MEDS: thiamine 100 mg Tablet PO (11:04)
[2023-08-28] MEDS: pantoprazole DR 40 mg Tablet PO ×2 (11:05→17:37)
[2023-08-28] MEDS: folic acid 1 mg Tablet PO (11:05)
[2023-08-28] MEDS: sertraline 50 mg Tablet PO (11:05)
[2023-08-28] MEDS: acetaminophen 325 mg Tablet 650 MG PO (11:05)
[2023-08-28] MEDS: FUROsemide 20 mg Tablet PO (11:05)
[2023-08-28] MEDS: phytonadione (ADULT) 10 mg/mL Ampule 1 mL PO (11:05)
[2023-08-28] MEDS: cefTRIAXone 2,000 MG in sodium chloride 0.9% (plus) 50 ML 100 MG IV (17:37)
[2023-08-28 18:02] LABS: Sodium 129 mmol/L (136-145)
[2023-08-29] VITALS (8 sets, daily range): BP systolic 91–105; BP diastolic 40–76; PULSE 84–99; RESP 16–19; TEMP 36.4–37.1; O2SAT 91–97
[2023-08-29 06:44] LABS: Basophils % 0.7 %; Eosinophils % 0.7 %; Hematocrit 27.2 % (37-53); Lymphocytes # 0.7 10^3/uL (0.8-4.8); Lymphocytes % 11.3 %; Mean Corpuscular HGB Conc 34.2 g/dL (30-55); Mean Corpuscular Hemoglobin 32.5 pg (27-33); Mean Corpuscular Volume 95.1 fl (82-101); Monocytes # 0.3 10^3/uL (0.2-0.9); Monocytes % 5.2 %; Neutrophils # 4.95 10^3/uL (1.8-7.7); Nucleated Red Blood Cells % 0 %; Platelet Count 47 10^3/cmm (157-399); Red Blood Count 2.86 10^6/uL (3.85-5.65); Red Cell Distribution Width 17.6 % (12.1-15.1); White Blood Count 6.11 10^3/uL (3.29-11.43)
[2023-08-29 07:01] LABS: Alanine Aminotransferase 28 U/L (0-41); Albumin Level 2.5 g/dL (3.5-5.2); Alkaline Phosphatase 123 U/L (40-130); Anion Gap 13.1 (5-19); Aspartate Amino Transferase 53 U/L (0-40); Blood Urea Nitrogen 39 mg/dL (8-23); Calcium 8.9 mg/dL (8.5-10.5); Carbon Dioxide 24 mmol/L (22-29); Chloride 97 mmol/L (98-107); Globulin 3.1 g/dL (1.3-4.6); Glomerular Filtration Rate 85.8 mL/min (90-130); Glucose 110 mg/dL (65-115); Magnesium 2.1 mg/dL (1.7-2.3); Osmolality Calculated 280 mOsm/kg (285-295); Potassium 4.1 mmol/L (3.5-5.1); Sodium 130 mmol/L (136-145); Total Bilirubin 5.6 mg/dL (0.15-1.2); Total Protein 5.6 g/dL (6.6-8.7)
--- NOTE | 2023-08-29 10:06 | PC.CHAP ---
Pastoral Care Encounter/Spiritual Assessment Type of Contact [] Declined unmanned aircraft systems roboticist visit [] Patient/Family/Request visit [] Outpatient visit [] Follow-up visit [] Physician referral [] Code/Alert [x] Routine visit [] Staff referral [] Actively dying [] Patient sleeping [] Family support [] [] Out of room [] Palliative care [] [] Receiving care in room [] Pre-surgical visit [] Trauma [] Long length of stay [] ICU visit [] Other: Relational/Emotional Strength [] Patient feels connected with others/family/visitors/staff [] Distress [x] Loneliness/isolation [] Abandonment Spirituality of Patient [] Person of [place] [] Attends Yazidism of their [place] [] Believes in Prayer [] Reads Bible or Hoahaoism materials [] There are Spiritual issues to be addressed Scruff Worker Interventions [x] Prayer [] Active listening [] Non-anxious presence [] Spiritual/emotional support [] Crisis/trauma care [] Spiritual counseling [] Bereavement support [] Provided bereavement packet [] Provided Bible/devotional materials [] Provided toy/stuffed animal, coloring book to patient or family member [] Provided Communion [] Anointing/[place] [] Salvation [] Completed spiritual assessment [] Other: Impact on Illness or Injury [] Angry [] Fearful [] Anxious [] Often cries [] Exhaustion [] Unable to work [] Unable to attend jainism [] Unable to walk/stand [] Unable to read [] Unable to drive [] Unable to eat/drink [] Unable to sleep [] Unable to be with family [] Patient intubated [] Other: Summary patient feels lonely abandoned by friends and family Time spent with patient 15 min
[2023-08-29] MEDS: folic acid 1 mg Tablet PO (10:39)
[2023-08-29] MEDS: FUROsemide 20 mg Tablet PO (10:39)
[2023-08-29] MEDS: sertraline 50 mg Tablet PO (10:39)
[2023-08-29] MEDS: thiamine 100 mg Tablet PO (10:40)
[2023-08-29] MEDS: pantoprazole DR 40 mg Tablet PO ×2 (10:40→17:09)
--- NOTE | 2023-08-29 11:29 | P.PN_ITS ---
Documented by User: Jeimy Wilkerson, [employer] 08/29/23 12:41 Subjective 2 Subjective: Patient sitting up in bed this am, on RA. He denies SOB, chest pain, and N&V this morning. He does report some tightness in his chest this morning and pain with movement. Patient is currently alert and oriented x 4 this a.m. and able to answer questions appropriately. Mr. Resendiz states he does know that he got confused overnight 08/28, reports that this does not happen at home. He states he really thought people were coming in his room overnight. Vitals/I&O/Wt Last Vital Signs Temp 97.8 F 08/29/23 08:00 Pulse 85 08/29/23 08:00 Resp 17 08/29/23 08:00 BP 94/53 08/29/23 08:00 Pulse Ox 95 08/29/23 08:00 O2 Del Method Room Air 08/29/23 08:00 08/28/23 08/29/23 08/29/23 22:59 06:59 14:59 Intake Total 290 / 650 120 / 120 Output Total 400 / 400 Balance 290 / 450 -280 / -280 Weight last 48 hrs Weight 176 lb Weight 174 lb 3.2 oz Weight 175 lb 4.8 oz Physical Exam 2 Narrative: General: Alert, oriented, jaundiced. Answering questions appropriately. HEENT: Atraumatic normocephalic. Oropharynx clear Neck is supple, no lymphadenopathy, no thyromegaly Cardiovascular regular rate and rhythm, 2/6 systolic murmur Lungs sounds clear to auscultation, on room air. Abdomen non-tender. Active bowel sounds throughout. : Reports no difficulty urinating. Skin- no rash. Neuro: Slightly tremulous, but no focal deficits. Data 08/29/23 06:14 08/29/23 06:14 Micro: Microbiology 08/27/23 11:38 Urine Culture - Preliminary Urine,Clean Catch Coag positive Staphylococcus A&P Assessment and plan (1) Acute hyponatremia: CT head today results:No acute intracranial hemorrhage or edema and moderate atrophy and small vessel ischemic disease. Sodium 130 this a.m. Continue fluid restriction 1000 cc fluid over 24 hours CBC, BMP in AM. Fall precautions. Secondary to previous hallucinations, continue to monitor closely. (2) Pancytopenia: Labs continue to improve CBC, BMP in AM. (3) Cirrhosis: As per #1 (4) UTI (urinary tract infection): Continue Rocephin IV. Urine culture resulted: Staphylococcus aureus present. Continue Rocephin. Plan Significant fall risk secondary alcoholism, DJD, encephalopathy. Therapy consultations ordered. Plan is stated above. Patient's overall labs are improving. Will check CBC, BMP tomorrow morning. Full code SCD's for DVT prophylaxis, pharmacologic contraindicated secondary to anemia, decreased platelets. Coding Level of Care Code 03257 Diagnoses Acute hyponatremia E87.1 Pancytopenia D61.818 Cirrhosis K74.60 UTI (urinary tract infection) N39.0 Time Spent (min) 25 Documented by User: Wong Whelan MD 08/29/23 13:56 Data 08/29/23 06:14 08/29/23 06:14 A&P Assessment and plan (1) Acute hyponatremia: CT head today results:No acute intracranial hemorrhage or edema and moderate atrophy and small vessel ischemic disease. Sodium 130 this a.m. Continue fluid restriction 1000 cc fluid over 24 hours CBC, BMP in AM. Fall precautions. Secondary to previous hallucinations, continue to monitor closely. Lasix 20 mg p.o. every morning (2) Pancytopenia: (3) Cirrhosis: (4) UTI (urinary tract infection): Continue Rocephin IV. Urine culture resulted: Staphylococcus aureus present. Continue Rocephin. Await ID and sensitivity Plan Significant fall risk secondary alcoholism, DJD, encephalopathy. Therapy consultations ordered. Considering placement. Plan is stated above. Patient's overall labs are improving. Will check CBC, BMP tomorrow morning. Full code SCD's for DVT prophylaxis, pharmacologic contraindicated secondary to anemia, decreased platelets. Attestations 2 Medical Necessity Statement*: Patient needs continued hospitalization, for close monitoring secondary to hallucinations, severe weakness requiring placement secondary to fall risk, IV antibiotics for UTI Diagnoses Acute hyponatremia E87.1 Pancytopenia D61.818 Cirrhosis K74.60 UTI (urinary tract infection) N39.0 Time Spent (min) 25
[2023-08-29] MEDS: cefTRIAXone 2,000 MG in sodium chloride 0.9% (plus) 50 ML 100 MG IV (17:08)
[2023-08-30 04:12] VITALS: BP 93/55; PULSE 84; RESP 16; TEMP 36.9; O2SAT 92
[2023-08-30 05:16] LABS: Basophils % 0.4 %; Eosinophils # 0.1 10^3/uL (0.0-0.8); Eosinophils % 1.8 %; Lymphocytes # 0.9 10^3/uL (0.8-4.8); Lymphocytes % 11.9 %; Mean Corpuscular HGB Conc 34.8 g/dL (30-55); Mean Corpuscular Hemoglobin 32.5 pg (27-33); Mean Corpuscular Volume 93.3 fl (82-101); Monocytes # 0.4 10^3/uL (0.2-0.9); Monocytes % 5.8 %; Neutrophils # 5.79 10^3/uL (1.8-7.7); Neutrophils % 77.9 %; Nucleated Red Blood Cells % 0 %; Platelet Count 41 10^3/cmm (157-399); Red Blood Count 2.68 10^6/uL (3.85-5.65); Red Cell Distribution Width 17.7 % (12.1-15.1); White Blood Count 7.42 10^3/uL (3.29-11.43)
[2023-08-30 05:33] LABS: Alanine Aminotransferase 30 U/L (0-41); Albumin Level 2.4 g/dL (3.5-5.2); Alkaline Phosphatase 120 U/L (40-130); Anion Gap 15.8 (5-19); Aspartate Amino Transferase 54 U/L (0-40); Blood Urea Nitrogen 40 mg/dL (8-23); Calcium 8.6 mg/dL (8.5-10.5); Carbon Dioxide 23 mmol/L (22-29); Chloride 95 mmol/L (98-107); Globulin 3.2 g/dL (1.3-4.6); Glomerular Filtration Rate 85.8 mL/min (90-130); Glucose 102 mg/dL (65-115); Osmolality Calculated 280 mOsm/kg (285-295); Potassium 3.8 mmol/L (3.5-5.1); Sodium 130 mmol/L (136-145); Total Bilirubin 5.7 mg/dL (0.15-1.2); Total Protein 5.6 g/dL (6.6-8.7)
[2023-08-30 08:00] VITALS: BP 84/50; PULSE 82; RESP 17; TEMP 36.7; O2SAT 95
[2023-08-30 08:34] LABS: Uric Acid 5.7 mg/dL (3.4-7.0)
--- NOTE | 2023-08-30 08:49 | PM.PN ---
Documented by User: Jeimy Wilkerson [email or web address] 08/30/23 09:21 Subjective Subjective: Patient worked with physical therapy this morning and was sitting up in the chair noted to be on room air. Patient denies chest pain, shortness of breath, nausea, and vomiting. States his left arm still hurts this morning, states he feels overall weak. I offered to open the blinds to light in some light, patient stated, no, he feels like everyone is watching him . Medications: Reviewed: Yes Vitals/I&O/Wt Last Vital Signs Temp 98.0 F 08/30/23 08:00 Pulse 82 08/30/23 08:00 Resp 17 08/30/23 08:00 BP 84/50 08/30/23 08:00 Pulse Ox 95 08/30/23 08:00 O2 Del Method Room Air 08/30/23 08:00 08/29/23 08/30/23 08/30/23 22:59 06:59 14:59 Intake Total 290 / 650 Balance 290 / 250 Weight last 48 hrs Weight 173 lb 4 oz Weight 176 lb Physical Exam Narrative: General: Alert, oriented, jaundiced. Answering questions appropriately. HEENT: Atraumatic normocephalic. Oropharynx clear Neck is supple, no lymphadenopathy, no thyromegaly Cardiovascular regular rate and rhythm, 2/6 systolic murmur Lungs sounds clear to auscultation, on room air. Abdomen non-tender. Active bowel sounds throughout. Last bowel movement 08/30, denies diarrhea. : Reports no difficulty urinating. Skin- no rash. Extremity: Left wrist slightly more swollen than yesterday. Uric acid ordered-5.7. Neuro: Slightly tremulous, but no focal deficits. Data 08/30/23 04:36 08/30/23 04:36 Other Labs: Uric acid level ordered this a.m. due to increased swelling of left wrist. Uric acid normal at 5.7. Micro: Microbiology 08/27/23 11:38 Urine Culture - Final Urine,Clean Catch Staphylococcus aureus A&P Assessment and plan (1) Acute hyponatremia: CT head 08/28 results:No acute intracranial hemorrhage or edema and moderate atrophy and small vessel ischemic disease. Sodium 130 this a.m. Continue fluid restriction, 1000 cc fluid over 24 hours CBC, BMP in AM. Fall precautions. Secondary to previous hallucinations, continue to monitor closely. Lasix 20 mg p.o. every morning (2) Pancytopenia: Labs continue to improve CBC, BMP in AM. (3) Cirrhosis: As per #1 (4) UTI (urinary tract infection): Continue Rocephin IV. Urine culture resulted: Staphylococcus aureus present. Continue Rocephin. Await ID and sensitivity Plan Significant fall risk secondary alcoholism, DJD, encephalopathy. Therapy consultations ordered. Considering placement. Plan is stated above. Patient's overall labs are improving. Will check CBC, BMP tomorrow morning. Full code SCD's for DVT prophylaxis, pharmacologic contraindicated secondary to anemia, decreased platelets. Coding Level of Care Code 13372 Diagnoses Acute hyponatremia E87.1 Pancytopenia D61.818 Cirrhosis K74.60 UTI (urinary tract infection) N39.0 Time Spent (min) 18 Documented by User: Wong Whelan MD 08/30/23 09:37 Data 08/30/23 04:36 08/30/23 04:36 Other Labs: Uric acid level ordered this a.m. due to increased swelling of left forearm. This was normal A&P Assessment and plan (1) Acute hyponatremia: CT head 08/28 results:No acute intracranial hemorrhage or edema and moderate atrophy and small vessel ischemic disease. Sodium 130 this a.m. Continue fluid restriction, 1000 cc fluid over 24 hours CBC, BMP in AM. Fall precautions. Secondary to previous hallucinations, continue to monitor closely. No further hallucinations Lasix 20 mg p.o. every morning Stable today (2) Pancytopenia: Labs continue to improve CBC, CMP (3) Cirrhosis: (4) UTI (urinary tract infection): ID and sensitivity are back. Discontinue IV Rocephin. Placed on Cipro 500 twice a day for 5 days Urine culture resulted: Staphylococcus aureus present. Continue Rocephin. Await ID and sensitivity Plan Significant fall risk secondary alcoholism, DJD, encephalopathy. Therapy consultations ordered. Considering placement. Left wrist swelling. Likely musculoskeletal injury with fall. No fracture on x-ray. Uric acid level normal. Plan is stated above. Patient's overall labs are improving. Will check CBC, BMP tomorrow morning. Full code SCD's for DVT prophylaxis, pharmacologic contraindicated secondary to anemia, decreased platelets. Attestations Medical Necessity Statement*: Needs continued hospitalization to work with therapy, but awaiting placement. Diagnoses Acute hyponatremia E87.1 Pancytopenia D61.818 Cirrhosis K74.60 UTI (urinary tract infection) N39.0 Time Spent (min) 18
[2023-08-30] MEDS: folic acid 1 mg Tablet PO (09:48)
[2023-08-30] MEDS: FUROsemide 20 mg Tablet PO (09:48)
[2023-08-30] MEDS: sertraline 50 mg Tablet PO (09:48)
[2023-08-30] MEDS: pantoprazole DR 40 mg Tablet PO ×2 (09:48→17:12)
[2023-08-30] MEDS: thiamine 100 mg Tablet PO (09:48)
[2023-08-30 11:18] VITALS: BP 100/55; PULSE 80; RESP 16; TEMP 36.8; O2SAT 94
[2023-08-30 15:06] LABS: SARS Covid-2 Antigen negative (Negative)
[2023-08-30 16:00] VITALS: BP 144/64; PULSE 59; RESP 17; TEMP 36.9; O2SAT 94
[2023-08-30 19:28] VITALS: BP 95/42; PULSE 83; RESP 17; TEMP 37; O2SAT 93
[2023-08-30] MEDS: ciprofloxacin 500 mg Tablet PO (20:25)
[2023-08-30] MEDS: albumin 12.5 GM/250 ML VIAL IV (20:54)
[2023-08-30 23:47] VITALS: BP 90/46
[2023-08-31] VITALS (36 sets, daily range): BP systolic 83–108; BP diastolic 38–58; PULSE 78–88; RESP 16–26; TEMP 36.6–37.4; O2SAT 89–95; BMI 31.1
--- NOTE | 2023-08-31 00:03 | PC.NURSE ---
Report called to MARITZA Mcbride at this time. ICU 7 to be cleaned and then pt transferred to the unit.
--- NOTE | 2023-08-31 01:12 | PC.NURSE ---
Arrival to ICU: Pt arrived to ICU 7 via hospital bed @0052 08/31/23. Pt is A&Ox4 and states he has 7/10 pain all over. Pt refused Tylenol. Continuos cardiac monitoring initiated. No open wounds noted, bruising to the sacrum, skin is jaundiced.
--- NOTE | 2023-08-31 01:40 | PC.NURSE ---
Low BP: Notified Dr. Hopkins of low BP's @7470. No new orders at this time.
[2023-08-31 06:32] LABS: Hematocrit 24.9 % (37-53); Mean Corpuscular HGB Conc 34.5 g/dL (30-55); Mean Corpuscular Hemoglobin 32.6 pg (27-33); Mean Corpuscular Volume 94.3 fl (82-101); Platelet Count 51 10^3/cmm (157-399); Red Blood Count 2.64 10^6/uL (3.85-5.65); Red Cell Distribution Width 18.2 % (12.1-15.1); White Blood Count 7.14 10^3/uL (3.29-11.43)
[2023-08-31 06:43] LABS: Alanine Aminotransferase 30 U/L (0-41); Albumin Level 2.4 g/dL (3.5-5.2); Alkaline Phosphatase 129 U/L (40-130); Anion Gap 13.1 (5-19); Aspartate Amino Transferase 54 U/L (0-40); Blood Urea Nitrogen 39 mg/dL (8-23); Calcium 8.5 mg/dL (8.5-10.5); Carbon Dioxide 24 mmol/L (22-29); Chloride 98 mmol/L (98-107); Globulin 3.2 g/dL (1.3-4.6); Glucose 103 mg/dL (65-115); Osmolality Calculated 282 mOsm/kg (285-295); Potassium 4.1 mmol/L (3.5-5.1); Sodium 131 mmol/L (136-145); Total Bilirubin 6.9 mg/dL (0.15-1.2); Total Protein 5.6 g/dL (6.6-8.7)
--- NOTE | 2023-08-31 07:24 | XR_ITS ---
WS: [id number] Right ankle, AP and lateral views, 08/31/2023 Clinical Data: pain Comparison: None. Findings: No fractures or dislocations are seen. The ankle mortise is normal. The talus and calcaneus are unrem arkable. No soft tissue swelling over the medial or lateral malleolus is seen. Impression: Negative right ankle.
[2023-08-31 07:36] LABS: Slide Review Slide Review Perform
[2023-08-31 07:38] LABS: Absolute Segmented Neutrophil 4.9 10/cmm (1.6-7.1); Band Neutrophils Absolute 0.9 10^3/cmm (0.0-1.2); Lymphocytes 9 %; Lymphocytes Absolute 0.8 10^3/cmm (1.2-3.4); Monocytes Absolute 0.4 10^3/cmm (0.1-0.6); Segmented Neutrophils 69 %; Total Cells Counted 100 (0-100)
[2023-08-31 07:40] LABS: Absolute Neutrophil 5.9 10^3/cmm (1.4-6.5); Platelet Estimate Decreased (Normal); Poikilocytosis 1+
[2023-08-31 07:41] LABS: Eosinophils 0 %
[2023-08-31] MEDS: midodrine 5 mg TABLET 10 MG PO (08:08)
--- NOTE | 2023-08-31 08:08 | P.PN_ITS ---
Documented by User: mynor Holloway 08/31/23 08:17 Subjective 2 Subjective: Patient was evaluated this morning while lying in bed on room air. Patient had a complaint of right ankle pain. States that he is thirsty this morning and would like to drink a little bit more than he has been. Also stated that he was hungry and felt like he had an appetite more. Denies any other complaints at this time. Medications: Reviewed: Yes Vitals/I&O/Wt Last Vital Signs Temp 98.1 F 08/31/23 01:12 Pulse 82 08/31/23 06:15 Resp 24 H 08/31/23 06:15 BP 94/53 08/31/23 06:00 Pulse Ox 91 08/31/23 06:15 O2 Del Method Room Air 08/31/23 06:15 08/30/23 08/31/23 08/31/23 22:59 06:59 14:59 Intake Total 380 / 740 Output Total 325 / 325 Balance 380 / 740 -325 / 415 Weight last 48 hrs Weight 84.822 kg Weight 78.585 kg Physical Exam 2 Narrative: General: Alert, oriented, jaundiced. Answering questions appropriately. HEENT: Atraumatic normocephalic. Oropharynx clear Neck is supple, no lymphadenopathy, no thyromegaly Cardiovascular regular rate and rhythm, 2/6 systolic murmur Lungs sounds clear to auscultation, on room air. Abdomen non-tender. Active bowel sounds throughout. : Reports no difficulty urinating. Skin- no rash. Extremity: Left wrist slightly more swollen than yesterday. Uric acid ordered- 5.7. 2+ pitting edema to right lower extremity. 1+ pitting edema to left lower extremity. Neuro: Slightly tremulous, but no focal deficits. Data 08/31/23 06:14 08/31/23 06:14 Other Labs: Hemoglobin 8.6. Hematocrit 24.9.Sodium 131 BUN 39 T. bili 6.9 AST 54 A&P Assessment and plan (1) Acute hyponatremia: Sodium 131 this a.m. Continue fluid restriction, increased to 1500 cc fluid over 24 hours. CBC, BMP in AM. Fall precautions. Secondary to previous hallucinations, continue to monitor closely. No further hallucinations Lasix 20 mg p.o. every morning Stable today (2) Pancytopenia: Labs continue to improve CBC, CMP (3) Cirrhosis: As per #1 (4) UTI (urinary tract infection): Staphylococcus aureus present in urine culture. Continue ciprofloxacin. Plan PT/OT eval and treat. Will look for SNF placement today. Patient c/o right ankle pain. Right ankle x-ray to be performed today. CBC, BMP in AM. Overall labs are improving. Full code SCD's for DVT prophylaxis, pharmacologic contraindicated secondary to anemia, decreased platelets. Coding Level of Care Code 53804 Diagnoses Acute hyponatremia E87.1 Pancytopenia D61.818 Cirrhosis K74.60 UTI (urinary tract infection) N39.0 Time Spent (min) 25 Documented by User: Wong Whelan MD 08/31/23 08:35 Subjective 2 Subjective: Patient was evaluated this morning while lying in bed on room air. Patient had a complaint of right ankle pain. States that he is thirsty this morning and would like to drink a little bit more than he has been. Also stated that he was hungry and felt like he had an appetite more. Denies any other complaints at this time. He was moved to the ICU through the night secondary to some lower blood pressures. He received a dose of albumin but nothing more. Blood pressure remained stable with no need for any pressors. Data 08/31/23 06:14 08/31/23 06:14 Other Labs: Hemoglobin 8.6. Hematocrit 24.9.Sodium 131 BUN 39 T. bili 6.9 AST 54 X-ray of right ankle per my read demonstrates no fracture, awaiting radiology overread A&P Assessment and plan (1) Acute hyponatremia: (2) Pancytopenia: Labs continue to improve CBC, CMP I discussed the case with hematology on admission, performed bilirubin fractionation as well as haptoglobin, to ensure review did not have any hemolysis. It appears his thrombocytopenia, anemia, hyponatremia are all due to liver disease. (3) Cirrhosis: As per #1 Bilirubin slightly increased from admission, likely secondary to fluid restriction. Liberalizing today. Consider outpatient follow-up with GI specialist (4) UTI (urinary tract infection): Plan Soft blood pressures. He has been going on since his admission and are secondary to his current comorbidities including liver disease. It is probably slightly worse secondary to his fluid restriction which is being liberalized today. Will go ahead and add some midodrine 10 mg 3 times daily. PT/OT eval and treat. Awaiting SNF placement Patient c/o right ankle pain. Right ankle x-ray to be performed today. I believe this will be read as negative CBC, CMP in AM. Overall labs are improving. Full code SCD's for DVT prophylaxis, pharmacologic contraindicated secondary to anemia, decreased platelets. Attestations 2 Medical Necessity Statement*: Needs continued hospitalization pending placement, and for close monitoring of blood pressure with addition of midodrine Diagnoses Acute hyponatremia E87.1 Pancytopenia D61.818 Cirrhosis K74.60 UTI (urinary tract infection) N39.0 Time Spent (min) 25
[2023-08-31] MEDS: sertraline 50 mg Tablet PO (08:09)
[2023-08-31] MEDS: thiamine 100 mg Tablet PO (08:09)
[2023-08-31] MEDS: folic acid 1 mg Tablet PO (08:09)
[2023-08-31] MEDS: FUROsemide 20 mg Tablet PO (08:09)
[2023-08-31] MEDS: pantoprazole DR 40 mg Tablet PO (08:09)
[2023-08-31] MEDS: ciprofloxacin 500 mg Tablet PO (08:21)
--- NOTE | 2023-08-31 09:41 | PC.NURSE ---
Called report to MARITZA Snow
--- NOTE | 2023-08-31 11:09 | P.DS_ITS ---
Discharge Providers Date of Admission: 08/28/23 14:26 Date of Discharge: August 31, 2023 Attending Provider at Admission: Wong Whelan MD Attending Provider at Discharge: Wong Whelan MD Primary Care Provider: Nancy Benavides MD Diagnoses at Discharge Discharge Diagnosis (1) Acute hyponatremia: Status: Acute (2) Pancytopenia: Status: Acute (3) Cirrhosis: Status: Acute (4) UTI (urinary tract infection): Status: Acute Reason for Visit Reason for Visit: fall 6 days ago Hospital Course Hospital Course Jase is a 63-year-old white male who presented to the hospital with a history of a fall 4 days before and was found to be hyponatremic. He had known pancytopenia, known liver disease, and had recently been evaluated by hematology. There has been some concern in the past that he may have hemolysis. Laboratory was reviewed, I discussed his case briefly with hematology, and he was not found to have any hemolysis on this visit. He was found to have possible UTI for which he was started on antibiotics and hyponatremia for which she was fluid restricted and received some loop diuretic high chance of fall second. Physical therapy was consulted secondary to his to arthritic disease, liver disease. He had multiple x-rays done making sure no fracture is present. He does have severe degenerative joint disease in his right knee. During his hospital stay he did have some encephalopathy, liver likely related to his chronic alcohol use in the past. He did stop drinking over 1 year ago and had no alcohol withdrawal symptoms while in the hospital. With treatment of hyponatremia, sodium came up and stabilized nicely. Hemoglobin was stable 8.6 prior to discharge. Sodium was 131. It was thought he could discharge to a custodial facility secondary to his comorbidities. He will have an outpatient follow-up with GI arranged in the future. He will need a CBC and a CMP next week. He was able ask questions and agreed with the plan. Physical Exam Narrative: See exam done earlier in the day Discharge Data Studies Completed and Pending Completed Studies During Hospitalization Category Date Time Status CT head wo con* [id number] Routine Cat Scan 08/28/23 07:51 Completed XR ankle RT 2V [id number] Routine Exams 08/31/23 07:24 Completed XR chest 1V portable [id number] Routine Exams 08/27/23 15:07 Completed XR knee RT 3V* [id number] Stat Exams 08/27/23 09:38 Completed XR wrist LT min 3V* [id number] Stat Exams 08/27/23 09:38 Completed Pending at discharge Category Date Time Status CBC Auto Diff [Complete Blood Count w/Auto] AM LABS Lab 09/01/23 04:00 Ordered CMP [Comprehensive Metabolic Panel] AM LABS Lab 09/01/23 04:00 Ordered Radiology Impressions Knee X-Ray 08/27/23 09:38 IMPRESSION: Severe arthritic changes right knee appearing slightly progressed compared to 03/16/2020. Suprapatellar fluid, effusion. Wrist X-Ray 08/27/23 09:38 IMPRESSION: No displaced fracture seen of wrist. Chest X-Ray 08/27/23 15:07 IMPRESSION: No acute findings. Laboratory Results WBC 7.14 10^3/uL (3.29-11.43) 08/31/23 06:14 RBC 2.64 10^6/uL (3.85-5.65) L 08/31/23 06:14 Hgb 8.60 g/dL (11.27-16.99) L 08/31/23 06:14 Hct 24.9 % (37-53) L 08/31/23 06:14 MCV 94.3 fl (82-101) 08/31/23 06:14 MCH 32.6 pg (27-33) 08/31/23 06:14 MCHC 34.5 g/dL (30-55) 08/31/23 06:14 RDW 18.2 % (12.1-15.1) H 08/31/23 06:14 Plt Count 51 10^3/cmm (157-399) L 08/31/23 06:14 MPV TNP 08/31/23 06:14 Neut % (Auto) 77.9 % 08/30/23 04:36 Lymph % (Auto) Not Reportable 08/31/23 06:14 [place] % (Auto) Not Reportable 08/31/23 06:14 Eos % (Auto) 1.8 % 08/30/23 04:36 Baso % (Auto) 0.4 % 08/30/23 04:36 Neut # (Auto) 5.79 10^3/uL (1.8-7.7) 08/30/23 04:36 Lymph # (Auto) Not Reportable 08/31/23 06:14 [place] # (Auto) Not Reportable 08/31/23 06:14 Eos # (Auto) 0.1 10^3/uL (0.0-0.8) 08/30/23 04:36 Baso # (Auto) 0.0 10^3/uL (0.0-0.1) 08/30/23 04:36 Nucleated RBC % (auto) 0 % 08/30/23 04:36 Total Counted 100 (0-100) 08/31/23 06:14 Atypical Lymphs % 2.0 % (0-5) 08/31/23 06:14 Absolute Neutrophils 5.9 10^3/cmm (1.4-6.5) 08/31/23 06:14 Segmented Neutrophils 69 % 08/31/23 06:14 Abs Segm Neuts (Man) 4.9 10/cmm (1.6-7.1) 08/31/23 06:14 Band Neutrophils 13.0 % 08/31/23 06:14 Abs Band Neuts (Man) 0.9 10^3/cmm (0.0-1.2) 08/31/23 06:14 Absolute Lymphocytes 0.8 10^3/cmm (1.2-3.4) L 08/31/23 06:14 Lymphocytes (Manual) 9 % 08/31/23 06:14 Monocytes (Manual) 5.0 % 08/31/23 06:14 Absolute Monocytes 0.4 10^3/cmm (0.1-0.6) 08/31/23 06:14 Eosinophils (Manual) 0 % 08/31/23 06:14 Absolute Eosinophils 0.0 10^3/cmm (0.0-0.7) 08/31/23 06:14 Basophils (Manual) 0.0 % 08/31/23 06:14 Absolute Basophils 0.0 10^3/cmm (0.0-0.2) 08/31/23 06:14 Metamyelocytes 2.0 % 08/31/23 06:14 Nucleated RBCs # 0.0 /100WBC 08/30/23 04:36 Platelet Estimate Decreased (Normal) 08/31/23 06:14 Poikilocytosis 1+ H 08/31/23 06:14 Peripher Smr Path Cons Sent for review 08/27/23 09:55 Haptoglobin 45.0 mg/L (30-200) 08/27/23 09:55 PT 23.40 SECONDS (12.1-14.9) H 08/27/23 09:55 INR 2.00 (0.8-1.2) H 08/27/23 09:55 Sodium 131 mmol/L (136-145) L 08/31/23 06:14 Potassium 4.1 mmol/L (3.5-5.1) 08/31/23 06:14 Chloride 98 mmol/L (98-107) 08/31/23 06:14 Carbon Dioxide 24 mmol/L (22-29) 08/31/23 06:14 Anion Gap 13.1 (5-19) 08/31/23 06:14 BUN 39 mg/dL (8-23) H 08/31/23 06:14 Creatinine 1.0 mg/dL (0.7-1.2) 08/31/23 06:14 GFR Calculation 76.0 mL/min (90-130) L 08/31/23 06:14 Glucose 103 mg/dL (65-115) 08/31/23 06:14 Calculated Osmolality 282 mOsm/kg (285-295) L 08/31/23 06:14 Uric Acid 5.7 mg/dL (3.4-7.0) 08/30/23 04:36 Calcium 8.5 mg/dL (8.5-10.5) 08/31/23 06:14 Magnesium 2.1 mg/dL (1.7-2.3) 08/29/23 06:14 Total Bilirubin 6.9 mg/dL (0.15-1.2) H 08/31/23 06:14 Direct Bilirubin 2.60 mg/dL (0.00-0.30) H 08/27/23 09:55 Indirect Bilirubin Cancelled 08/27/23 09:55 AST 54 U/L (0-40) H 08/31/23 06:14 ALT 30 U/L (0-41) 08/31/23 06:14 Alkaline Phosphatase 129 U/L (40-130) 08/31/23 06:14 Ammonia 20 umol/L (16-60) 08/27/23 15:52 Lactate Dehydrogenase 227 U/L (135-225) H 08/27/23 09:55 Total Protein 5.6 g/dL (6.6-8.7) L 08/31/23 06:14 Albumin 2.4 g/dL (3.5-5.2) L 08/31/23 06:14 Globulin 3.2 g/dL (1.3-4.6) 08/31/23 06:14 Urine Color Leydi (Yellow) 08/27/23 11:38 Urine Appearance Clear (CLEAR) 08/27/23 11:38 Urine pH 6 (5-7) 08/27/23 11:38 Ur Specific [place] 1.010 (1.005-1.030) 08/27/23 11:38 Urine Protein Trace (Negative) 08/27/23 11:38 Urine Glucose (UA) Norm (Normal) 08/27/23 11:38 Urine Ketones Negative (Negative) 08/27/23 11:38 Urine Blood 3+ (Negative) H 08/27/23 11:38 Urine Nitrate Negative (Negative) 08/27/23 11:38 Urine Bilirubin 1+ (Negative) H 08/27/23 11:38 Urine Urobilinogen 4+ mg/dL (Negative) H 08/27/23 11:38 Ur Leukocyte Esterase 1+ (Negative) H 08/27/23 11:38 Urine RBC 15-25 /hpf (0-2) H 08/27/23 11:38 Urine WBC 10-15 /hpf (0-5) H 08/27/23 11:38 Ur Squamous Epith Cells None /hpf (0-5) 08/27/23 11:38 Amorphous Sediment Not Reportable 08/27/23 11:38 Urine Bacteria 1+ /hpf (NONE) H 08/27/23 11:38 Ur Random Sodium < 10 mmol/L 08/27/23 11:38 Ur Random Potassium 30 mmol/L 08/27/23 11:38 Ur Random Chloride 16 mmol/L 08/27/23 11:38 SARS-CoV-2 Ag (Rapid) negative (Negative) 08/30/23 14:40 YAMILETH, Poly Interpret Negative 08/27/23 09:55 Vitals Last Vital Signs Temp 97.8 F 08/31/23 10:00 Pulse 78 08/31/23 10:00 Resp 18 08/31/23 10:00 BP 108/48 08/31/23 10:00 Pulse Ox 95 08/31/23 10:00 O2 Del Method Room Air 08/31/23 10:00 Discharge Plan Discharge Patient Disposition: Xfer SNF Condition: Stable Prescriptions: New tramadol 50 mg tablet 50 mg PO TID PRN (Reason: pain) Qty: 20 0RF folic acid 1 mg Tablet 1 mg PO DAILY Qty: 30 0RF ciprofloxacin HCl 500 mg Tablet 500 mg PO BID@0900,2100 Qty: 10 0RF midodrine 5 mg tablet 7.5 mg PO TID Qty: 135 0RF Rx Instructions: do not give last dose of day after 6PM or within 4 hrs of bedtime pantoprazole 40 mg Tablet,Delayed Release (Dr/Ec) 40 mg PO BID Qty: 60 0RF sertraline 50 mg Tablet 50 mg PO DAILY Qty: 30 0RF furosemide 20 mg Tablet 20 mg PO DAILY@0800 Qty: 30 0RF thiamine mononitrate (vit B1) [Vitamin B-1 (mononitrate)] 100 mg Tablet 100 mg PO DAILY Qty: 30 0RF Discontinued ferrous sulfate 27 mg iron tablet 27 mg PO DAILY PRN (Reason: Pain) sertraline [Zoloft] 100 mg tablet 100 mg PO DAILY Qty: 30 2RF hydrocodone-acetaminophen 5-325 mg tablet 1 tab PO BID PRN (Reason: pain) 7 Days Qty: 14 0RF hydroxyzine HCl 50 mg tablet 100 mg PO BEDTIME PRN (Reason: insomnia) No Action (DME) SHOULDER IMMOBILIZER See Rx Instructions .ROUTE .MEDSUPPLY Qty: 1 0RF Rx Instructions: As directed (DME) arm sling See Rx Instructions .Route .MEDSUPPLY Qty: 1 0RF Rx Instructions: As directed Discharge Orders: Discharge Order (Routine); Ordered 08/31/23 Ordered By: Wong Whelan Referrals: Nancy Benavides MD [Primary Care Provider] - Discharge Diet: Regular Discharge Activity: Increase activity as tolerated Activity Restrictions/Additional Instructions: Take all medicine as prescribed CBC, CMP on Sunday Follow-up with primary care provider at custodial facility Please arrange referral to gastroenterology, chronic liver disease, [place] or [place] Discharge Attestations Time Spent in Discharge Care*: greater than 30 min Quality Metrics Clinical Quality Measures [ No reported AMI, CVA or VTE this stay] Coding Level of Care Code 19822 Total time (in minutes) for Discharge: 32 Diagnoses Acute hyponatremia E87.1 Pancytopenia D61.818 Cirrhosis K74.60 UTI (urinary tract infection) N39.0
== END 2023-08-31 12:46 | disposition skilled nursing facility (03) | DRG 641 ==
LOC: ER 10:59 → ER IP 13:42 → MEDSURG 15:17 → ICU 08-31 00:06 → MEDSURG 08-31 09:21
PROVIDERS: Admitting Provider Internal Medicine; Emergency Provider Physician Assistant; PCP Family Medicine; Visit Provider Internal Medicine
DX: E87.1 Hypo-osmolality and hyponatremia (principal); D61.818 Other pancytopenia; N39.0 Urinary tract infection, site not specified; G93.40 Encephalopathy, unspecified; M17.11 Unilateral primary osteoarthritis, right knee; E78.5 Hyperlipidemia, unspecified; F32.A Depression, unspecified; F17.210 Nicotine dependence, cigarettes, uncomplicated; F17.220 Nicotine dependence, chewing tobacco, uncomplicated; B95.61 Methicillin susceptible Staphylococcus aureus infection as the cause of diseases classified elsewhere; F10.20 Alcohol dependence, uncomplicated; M25.532 Pain in left wrist; M25.571 Pain in right ankle and joints of right foot; K70.30 Alcoholic cirrhosis of liver without ascites
CPT/HCPCS: 36415; 70450; 71045; 73110; 73562; 73600; 80053; 81001; 82140; 82248; 82436; 83010; 83615; 83735; 84133; 84295; 84300; 84550; 85007; 85025; 85610; 86880; 87077; 87086; 87186; 87426; 96365; 96366; 97110; 97161; 97167; 97530; 97535; 99285; A4565; G0378; J0696; J1940; J3430; P9045

== ENCOUNTER 2023-09-27 11:03 | Inpatient (IN) | payer MEDICAID, SELFPAY ==
[2023-09-27] VITALS (125 sets, daily range): BP systolic 70–166; BP diastolic 54–104; PULSE 73–176; RESP 18–35; TEMP 35.7–36.8; O2SAT 88–96; BMI 26.9; BMI 32.0
--- NOTE | 2023-09-27 11:14 | ED_ITS ---
HPI - Weakness 2 General: Chief complaint: Weakness Stated complaint: Gen Weakness Time Seen by Provider: 09/27/23 11:14 History of Present Illness: 63-year-old male presents emergency depa rtment via EMS personnel from his long- term care facility [place] where he resides. Patient states that he has increased fatigue and weakness as well as continued abdominal swelling. He does have a history of cirrhosis of the liver. Associated symptoms: Reports nausea and vomiting Review of Systems 2 General: Reports: 10 or more systems reviewed and unremarkable except in HPI and below Const: Reports: fatigue and malaise GI: Reports: abdominal pain, nausea and vomiting Skin/Breast: Reports: changes in skin color PFSH ED 2 PFSH: Medical History Pancytopenia Psychiatric care Osteoarthritis of right knee Hyperlipidemia Depression Surgical History History of arthroscopy of right knee Family History Brother Lung disease asbestos Denies family history of Diabetes CAD (coronary artery disease) Clotting disorder Cancer Stroke Social History Smoking and tobacco/nicotine status: current every day tobacco/nicotine user cigarettes Packs smoked per day: 0.5 Years cigarettes smoked: 40 [ Other cigarette details: 1 pack every 2 weeks] and smokeless tobacco Smokeless tobacco user: chewing tobacco Smokeless tobacco details: used at least 40 years Alcohol intake: never Substance/Drug Use: never Marital status: Single Number of children: 1 Number of grandchildren: 0 Current occupational status: disabled 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 Vital signs as documented. No acute distress at present. Alert and oriented-to person, place, time and situation. Head, eyes, ears, nose, mouth, throat: Normocephalic, atraumatic. Pupils-equal, round, reactive to light. scleral icterus noted. Normal-appearing external ears. Normal appearing nasal turbinates, no drainage. No obvious oral lesions, posterior oropharynx without erythema or exudates. Neck: Supple, trachea is midline, no lymphadenopathy, no jugular venous distension, thyromegaly, or carotid bruits. Carotid upstrokes are brisk bilaterally. Lungs: Decreased bilaterally in the bases with faint crackles throughout.. Symmetrical rise and fall of chest, no obvious signs of increased work of breathing at present. Cardiac: Regular rate and rhythm, positive S1, S2. No murmurs, rubs or gallops that I can appreciate Abdomen: Soft, non-tender to palpation, normal active bowel sounds to all quadrants. Significant abdominal ascites noted.. Extremities: 2+ pulses in the upper extremities that are equal bilaterally, 2+ pulses in the lower extremities that are equal bilaterally. Edematous to the lower extremities. Moves all extremities well, sensation to all extremities are noted. Skin: Warm, dry, intact, jaundiced. Course 2 Vital Signs: Vital signs: Vital Signs Temperature 97.4 F L 09/29/23 16:20 Pulse Rate 93 09/29/23 16:20 Respiratory Rate 18 09/29/23 16:20 Blood Pressure 86/57 09/29/23 16:20 Pulse Oximetry 95 09/29/23 16:20 Oxygen Delivery Me thod Nasal Cannula 09/29/23 16:20 Oxygen Flow Rate 2 09/29/23 11:42 MDM - Weakness Medical Decision Making Physical exam completed and documented I will obtain a CBC and CMP as well as ammonia level and request hospital admission. Medical Records I reviewed the patient's medical records. Lab Data I reviewed the patient's lab results. 09/28/23 09:20 09/28/23 06:54 Radiology Impressions Hip/Pelvis X-Ray 09/27/23 17:32 IMPRESSION: No acute findings. Laboratory Results WBC 13.98 10^3/uL (3.29-11.43) H 09/27/23 11:15 RBC 2.71 10^6/uL (3.85-5.65) L 09/27/23 11:15 Hgb 9.40 g/dL (11.27-16.99) L 09/27/23 11:15 Hct 27.2 % (37-53) L 09/27/23 11:15 MCV 100.4 fl (82-101) 09/27/23 11:15 MCH 34.7 pg (27-33) H 09/27/23 11:15 MCHC 34.6 g/dL (30-55) 09/27/23 11:15 RDW 18.3 % (12.1-15.1) H 09/27/23 11:15 Plt Count 57 10^3/cmm (157-399) L 09/27/23 11:15 MPV 9.7 fL (7.4-10.4) 09/27/23 11:15 Neut % (Auto) 85.1 % 09/27/23 11:15 Lymph % (Auto) 9.4 % 09/27/23 11:15 [place] % (Auto) 3.4 % 09/27/23 11:15 Eos % (Auto) 0.3 % 09/27/23 11:15 Baso % (Auto) 0.3 % 09/27/23 11:15 Neut # (Auto) 11.90 10^3/uL (1.8-7.7) H 09/27/23 11:15 Lymph # (Auto) 1.3 10^3/uL (0.8-4.8) 09/27/23 11:15 [place] # (Auto) 0.5 10^3/uL (0.2-0.9) 09/27/23 11:15 Eos # (Auto) 0.0 10^3/uL (0.0-0.8) 09/27/23 11:15 Baso # (Auto) 0.0 10^3/uL (0.0-0.1) 09/27/23 11:15 Nucleated RBC % (auto) 0 % 09/27/23 11:15 Nucleated RBCs # 0.0 /100WBC 09/27/23 11:15 PT 26.20 SECONDS (12.1-14.9) H 09/27/23 11:15 INR 2.31 (0.8-1.2) H 09/27/23 11:15 APTT 47.0 SECONDS (23.9-36.7) H 09/27/23 11:15 Sodium 126 mmol/L (136-145) L 09/27/23 11:15 Potassium 5.1 mmol/L (3.5-5.1) 09/27/23 11:15 Chloride 90 mmol/L (98-107) L 09/27/23 11:15 Carbon Dioxide 17 mmol/L (22-29) L 09/27/23 11:15 Anion Gap 24.1 (5-19) H 09/27/23 11:15 BUN 100 mg/dL (8-23) H* D 09/27/23 11:15 Creatinine 5.9 mg/dL (0.7-1.2) H* 09/27/23 11:15 GFR Calculation 9.8 mL/min (90-130) L 09/27/23 11:15 Glucose 71 mg/dL (65-115) 09/27/23 11:15 Calculated Osmolality 292 mOsm/kg (285-295) 09/27/23 11:15 Lactic Acid 3.4 mmol/L (0.5-2.2) H 09/27/23 11:15 Calcium 8.0 mg/dL (8.5-10.5) L 09/27/23 11:15 Magnesium 2.3 mg/dL (1.7-2.3) 09/27/23 11:15 Total Bilirubin 5.1 mg/dL (0.15-1.2) H 09/27/23 11:15 AST 62 U/L (0-40) H 09/27/23 11:15 ALT 26 U/L (0-41) 09/27/23 11:15 Alkaline Phosphatase 120 U/L (40-130) 09/27/23 11:15 Troponin T Baseline 28 ng/L (0-15) H 09/27/23 11:15 Troponin T 120 Minute 28.04 ng/L (0-15) H 09/27/23 13:25 Delta Troponin T 0.04 ABS# (0-10) 09/27/23 13:25 Total Protein 6.9 g/dL (6.6-8.7) 09/27/23 11:15 Albumin 2.3 g/dL (3.5-5.2) L 09/27/23 11:15 Globulin 4.6 g/dL (1.3-4.6) 09/27/23 11:15 Procalcitonin 2.54 ng/mL (0-0.5) H 09/27/23 11:15 Urine Color Dark yellow (Yellow) 09/27/23 12:28 Urine Appearance Clear (CLEAR) 09/27/23 12:28 Urine pH 5 (5-7) 09/27/23 12:28 Ur Specific [place] 1.020 (1.005-1.030) 09/27/23 12:28 Urine Protein Trace (Negative) 09/27/23 12:28 Urine Glucose (UA) Norm (Normal) 09/27/23 12:28 Urine Ketones Negative (Negative) 09/27/23 12:28 Urine Blood 3+ (Negative) H 09/27/23 12:28 Urine Nitrate Negative (Negative) 09/27/23 12:28 Urine Bilirubin 1+ (Negative) H 09/27/23 12:28 Urine Urobilinogen 1 mg/dL (Negative) H 09/27/23 12:28 Ur Leukocyte Esterase Negative (Negative) 09/27/23 12:28 Urine RBC 40-50 /hpf (0-2) H 09/27/23 12:28 Urine WBC 0-4 /hpf (0-5) H 09/27/23 12:28 Ur Squamous Epith Cells 0-4 /hpf (0-5) H 09/27/23 12:28 Amorphous Sediment Trace /hpf 09/27/23 12:28 Urine Bacteria Trace /hpf (NONE) 09/27/23 12:28 Hyaline Casts 0-4 /lpf H 09/27/23 12:28 Urine Mucus 1+ /hpf 09/27/23 12:28 All radiology interpretation(s) finalized by discharge Discharge Plan Discharge Patient Disposition: Admitted As Inpatient Admit Provider: Cornell Campos Clinical Impression: Acute hepatic encephalopathy, Hepatorenal syndrome Condition: Stable Discharge Diet: Regular Discharge Activity: Resume usual activity Coding Level of Care Code ED Ankle Patch Molder for Mary Beth Coles
--- NOTE | 2023-09-27 11:16 | ECG_ITS ---
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 Measurements Intervals [place] Rate: 175 P: 0 VT: 0 QRS: 39 QRSD: 94 T: -67 QT: 267 QTc: 456 Interpretive Statements ATRIAL FIBRILLATION WITH RAPID VENTRICULAR RESPONSE ST DEVIATION AND MODERATE T-WAVE ABNORMALITY, CONSIDER LATERAL ISCHEMIA [-0.1+ mV T-WAVE IN I/aVL/V5/V6] ST DEVIATION AND MODERATE T-WAVE ABNORMALITY, CONSIDER INFERIOR ISCHEMIA [-0.1+ mV T-WAVE IN II/aVF] No previous ECG available for comparison Electronically Signed On 09-27-2023 13:02:17 REFRIGERATOR TESTER by Tristen Baez M.D. [id number]
--- NOTE | 2023-09-27 11:16 | XR_ITS ---
WS: [id number] Portable AP semiupright chest, 09/27/2023 Clinical Data: Weakness Comparison: None. Findings: No nodules, masses or effusions are seen. The heart is normal. The pulmonary vascularity is not increased. No pneumonia or pneumothorax is seen. The patient has a poor inspiratory effort. Calli tor leads are on the chest wall. There is an old fracture of the right humeral head and neck. The aor tic arch shows minimal tortuosity. Impression: Atherosclerosis.
[2023-09-27 11:22] LABS: Basophils % 0.3 %; Eosinophils % 0.3 %; Hematocrit 27.2 % (37-53); Lymphocytes # 1.3 10^3/uL (0.8-4.8); Lymphocytes % 9.4 %; Mean Corpuscular HGB Conc 34.6 g/dL (30-55); Mean Corpuscular Hemoglobin 34.7 pg (27-33); Mean Corpuscular Volume 100.4 fl (82-101); Mean Platelet Volume 9.7 fL (7.4-10.4); Monocytes # 0.5 10^3/uL (0.2-0.9); Monocytes % 3.4 %; Neutrophils % 85.1 %; Nucleated Red Blood Cells % 0 %; Platelet Count 57 10^3/cmm (157-399); Red Blood Count 2.71 10^6/uL (3.85-5.65); Red Cell Distribution Width 18.3 % (12.1-15.1); White Blood Count 13.98 10^3/uL (3.29-11.43)
[2023-09-27] MEDS: sodium chloride 0.9% 1,000 ML 999 ML IV (11:38)
[2023-09-27 11:43] LABS: INR 2.31 (0.8-1.2)
[2023-09-27 11:49] LABS: Slide Review Slide Review Perform
[2023-09-27 11:51] LABS: Alanine Aminotransferase 26 U/L (0-41); Albumin Level 2.3 g/dL (3.5-5.2); Alkaline Phosphatase 120 U/L (40-130); Anion Gap 24.1 (5-19); Aspartate Amino Transferase 62 U/L (0-40); Carbon Dioxide 17 mmol/L (22-29); Chloride 90 mmol/L (98-107); Globulin 4.6 g/dL (1.3-4.6); Glomerular Filtration Rate 9.8 mL/min (90-130); Glucose 71 mg/dL (65-115); Magnesium 2.3 mg/dL (1.7-2.3); Osmolality Calculated 292 mOsm/kg (285-295); Potassium 5.1 mmol/L (3.5-5.1); Sodium 126 mmol/L (136-145); Total Bilirubin 5.1 mg/dL (0.15-1.2); Total Protein 6.9 g/dL (6.6-8.7); Troponin(5th) Baseline 28 ng/L (0-15)
[2023-09-27 11:56] LABS: Blood Urea Nitrogen 100 mg/dL (8-23)
[2023-09-27 11:57] LABS: Procalcitonin 2.54 ng/mL (0-0.5)
--- NOTE | 2023-09-27 12:07 | ECG_ITS ---
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 Measurements Intervals [place] Rate: 94 P: 26 DE: 159 QRS: 13 QRSD: 99 T: 32 QT: 393 QTc: 492 Interpretive Statements SINUS RHYTHM NONSPECIFIC T-WAVE ABNORMALITY No previous ECG available for comparison Electronically Signed On 09-27-2023 13:03:47 ACID CLEANER by Tristen Baez M.D. [id number]
[2023-09-27 12:22] LABS: Lactic Sepsis W/Reflex 3.4 mmol/L (0.5-2.2)
[2023-09-27 12:58] LABS: Add Urine Microscopic? YES; Bilirubin Urine 1+ (Negative); Blood Urine 3+ (Negative); Glucose Urine UA Norm (Normal); Ketones Urine Negative (Negative); Leukocyte Esterase Urine Negative (Negative); Nitrate Urine Negative (Negative); Protein Urine Trace (Negative); Urine Appearance Clear (CLEAR); Urine Color Dark Yellow (Yellow); Urobilinogen Urine 1 mg/dL (Negative); pH Urine 5 (5-7)
[2023-09-27 13:19] LABS: Add Urine Culture? No; Amorphous Sediment Urine TRACE /hpf; Bacteria Urine TRACE /hpf; Hyaline Casts Urine 0-4 /lpf; Mucus Urine 1+ /hpf; RBC Urine 40-50 /hpf (0-2); Squamous Epithelial Cell Urine 0-4 /hpf (0-5); WBC Urine 0-4 /hpf (0-5)
[2023-09-27 13:49] LABS: Troponin 5 2HR 28.04 ng/L (0-15); Troponin 5 2HR Delta 0.04 ABS# (0-10)
[2023-09-27 13:49] LABS: Reflex Lactate Order REFLEX LACTIC ORDERD
--- NOTE | 2023-09-27 14:00 | CT_ITS ---
WS: [id number] CT CHEST, ABDOMEN AND PELVIS NONCONTRAST HISTORY: Abdominal ascites, SOB TECHNIQUE: Contiguous 5 mm axial imaging performed through the chest, abdomen and pelvis without IV c ontrast, oral contrast has Been provided. Coronal and sagittal reformats chest. Coronal and sagittal reformats through the abdom en and pelvis. All CT scans at [facility] use at least one of these dose optimization techniq ues: automated exposure control; mA and/or kV adjustment per patient size (includes targeted exams wh ere dose is matched to clinical indication); or iterative reconstruction. CONTRAST: None DLP: 1055.12 mGy.cm COMPARISON: Liver ultrasound 08/10/[address]: Decreased lung volumes. Bilateral scattered opacifications. Predominately due to poor inspi ration and dependent changes. Slightly increased pleural thickening at the RIGHT lung base. No signif icant effusion. Mild atherosclerosis aorta Heart is moderately enlarged. No adenopathy. Patient has a known nonhealed fracture involving the pro ximal RIGHT humerus. This was described on 06/07/2023. 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 Mild soft tissue anasarca. Abdomen CT: There is a large amount of ascites throughout the abdomen and pelvis which was not presen t on the prior ultrasound from July 2023. Cirrhotic appearing liver. The spleen is not significan tly enlarged. Normally distended gallbladder. Atrophic pancreas. No adrenal mass. No renal obstructio n. Nonobstructing calcification in the RIGHT renal pelvis. There is extensive soft tissue and mesente carmelo anasarca. There is mild omental thickening which is probably on the basis of the ascites. No GI tract obstruction. Atherosclerosis aorta. Pelvic CT: Free fluid continues into the pelvis. There is fluid extending along the patent RIGHT ingu inal canal. Estevez catheter in nondistended bladder. IMPRESSION: 1. Large amount of ascites is new since July 2023. 2. Extensive soft tissue and mesenteric edema. 3. Cirrhotic appearing liver. 4. Low lung volumes due to poor inspiration and poor expansion from the peritoneal ascites. 5. Moderate cardiomegaly. 6. 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
[2023-09-27] MEDS: meropenem 1,000 MG in sodium chloride 0.9% (plus) 50 ML 100 MG IV ×2 (14:27→21:31)
[2023-09-27] MEDS: sodium bicarbonate 8.4% 1 mEq/mL 50mL Syr 50 MEQ IVP (15:43)
[2023-09-27] MEDS: linezolid premix 600 MG/300 ML PREMIX 300 MG IV (15:44)
--- NOTE | 2023-09-27 15:48 | ECG_ITS ---
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 Measurements Intervals [place] Rate: 92 P: 29 ND: 207 QRS: 36 QRSD: 85 T: -1 QT: 367 QTc: 456 Interpretive Statements SINUS RHYTHM NONSPECIFIC T-WAVE ABNORMALITY Compared to ECG 09/27/2023 12:07:37 No significant changes Electronically Signed On 09-27-2023 18:32:45 STORE RECEIVER by Tristen Baez M.D. [email or web address]/store/[id number]
--- NOTE | 2023-09-27 16:09 | P.HP_ITS ---
Providers/Chief Complaint 2 Admitting Physician: Cornell Campos MD Primary Care Provider: Nancy Benavides MD Chief Complaint: Gen Weakness History of Present Illness Jase Resendiz is a 63 year old male with a known history of liver cirrhosis, history of pancytopenia, history of alcoholism, history of hyperlipidemia recent hospitalization for fall and hyponatremia, who presents to [facility] due to abnormal blood work I was told by ER physician, in the emergency room, he was found to have lactic acid of 3.4, Pro-Michael 2.54, INR of 2.31, sodium 126, BUN 100, creatinine 5.9, WBC 13.98, platelet count 57,000, hemoglobin 9.4, I had advised ER provider to order a CT scan of the abdomen, workup for sepsis, given his history of liver cirrhosis concerns for possible SBP, I saw that he was recently hospitalized for Staph aureus UTI which is quite unusual, to start him on broad-spectrum antibiotic therapy meropenem, Zyvox, fluid therapy, blood pressures are soft if Levophed is needed I advise ER provider to give it to him, and order stat CT scan. Patient was seen thereafter, on examination, patient is alert to person, not to place, not to time, his oral pharynx and nasopharynx is caked in thick coffee ground fluid, he tells me that he has been having the jail thought initial nosebleeds, but now it is in his mouth, when I asked him explicitly has not been vomiting this up, he denies it, but his oropharynx on examination his posterior pharynx, his nasopharynx is caked in coffee-ground viscous fluid, it seems like, if he ground emesis, I asked him if he had a history of esophageal varices, I was not able to get a straightforward answer from him, currently blood pressure is 99/60, pulse 90, respiratory 20, saturating 96% on room air, his hemoglobin is stable compared to the his last admission, platelet count stable, INR is elevated, I asked him if he was on any blood thinners he denied this, his BUN is 100, creatinine is 5.9 I spoke to [facility], [facility] and tells me that patient was having coffee- ground bloody noses, which she thought initially was nosebleed, but then his oropharynx was covered in this coffee-ground liquid, so they thought he might be having some sort of bleeding, so they sent him to the ER for evaluation, there were also worried about his mentation, his weakness, Review of Systems 2 Const: Denies: fever(s) Eyes: Denies: change in vision ENMT: Reports: throat pain Card: Denies: chest pain Resp: Reports: dyspnea GI: Reports: abdominal pain and nausea; Denies: hematemesis or coffee ground emesis : Reports: flank pain; Denies: difficulty urinating Musc: Reports: back pain Skin/Breast: Reports: rash Neuro: Reports: weakness in extremities and dizziness; Denies: headache(s) Psych: Denies: anxiety Endo: Denies: polyuria Medications/Allergies Home Medications Medication Instructions Recorded Confirmed Last Taken Type SHOULDER IMMOBILIZER #1 ea 06/12/23 09/27/23 Unknown Rx arm sling #1 ea 07/18/23 09/27/23 Unknown Rx folic acid 1 mg tablet 1 mg PO DAILY #30 tabs 08/31/23 09/27/23 09/27/23 Rx furosemide 20 mg tablet 20 mg PO DAILY@0800 #30 tabs 08/31/23 09/27/23 09/27/23 Rx midodrine 5 mg tablet 7.5 mg (1.5 x 5 mg) PO TID #135 08/31/23 09/27/23 09/27/23 Rx tabs pantoprazole 40 mg tablet,delayed 40 mg PO BID #60 tabs 08/31/23 09/27/23 09/27/23 Rx release thiamine mononitrate (vit B1) 100 100 mg PO DAILY #30 tabs 08/31/23 09/27/23 09/27/23 Rx mg tablet (Vitamin B-1 (mononitrate)) tramadol 50 mg tablet 50 mg PO TID PRN pain #20 tabs 08/31/23 09/27/23 Unknown Rx bisacodyl 10 mg rectal suppository 10 mg CO DAILY PRN Constipation 09/27/23 09/27/23 Unknown History (Dulcolax (bisacodyl)) magnesium hydroxide 400 mg/5 mL 30 ml PO DAILY PRN Constipation 09/27/23 09/27/23 Unknown History oral suspension (Milk of Magnesia) Allergies Allergy/AdvReac Type Severity Reaction Status Date / Time codeine Allergy sick Verified 09/27/23 11:29 morphine Allergy sick Verified 09/27/23 11:29 Penicillins Allergy sick Verified 09/27/23 11:29 PFSH Acute 2 PFSH: Medical History Pancytopenia Psychiatric care Osteoarthritis of right knee Hyperlipidemia Depression Surgical History History of arthroscopy of right knee Family History Brother Lung disease asbestos Denies family history of Diabetes CAD (coronary artery disease) Clotting disorder Cancer Stroke Social History Smoking and tobacco/nicotine status: current every day tobacco/nicotine user cigarettes Packs smoked per day: 0.5 Years cigarettes smoked: 40 [ Other cigarette details: 1 pack every 2 weeks] and smokeless tobacco Smokeless tobacco user: chewing tobacco Smokeless tobacco details: used at least 40 years Alcohol intake: never Substance/Drug Use: never Marital status: Single Number of children: 1 Number of grandchildren: 0 Current occupational status: disabled 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 Special preet needs: No Vitals/I&O/Wt Last Vital Signs Temp 96.3 F L 09/27/23 11:08 Pulse 95 09/27/23 15:40 Resp 24 H 09/27/23 15:45 BP 97/57 09/27/23 15:10 Pulse Ox 96 09/27/23 15:45 O2 Del Method Room Air 09/27/23 12:09 09/27/23 09/27/23 09/27/23 06:59 14:59 22:59 Intake Total 1000 / 1000 2254.46 / 3254.46 Balance 1000 / 1000 2254.46 / 3254.46 Weight last 48 hrs Weight 73.482 kg Physical Exam 2 Const: COMMON NORMALS: no acute distress EXAM LIMITATIONS: altered mental status GENERAL APPEARANCE: cooperative, ill appearing and Edematous N UTRITIONAL APPEARANCE: cachectic ORIENTATION/CONSCIOUSNESS: Yes awake and Yes oriented to person; not oriented to place and not oriented to time HENMT: COMMON NORMALS: normocephalic HEAD & SCALP: normocephalic OTHER: Nasopharynx, caked in thick viscous black tarry like fluid can extend his posterior pharynx, oral pharynx, caked did not take viscous black tarry fluid Eye: OTHER: Scleral icterus Neck/C-Spine: COMMON NORMALS: full ROM and no lymphadenopathy Lymph: LYMPHATIC: no lymphadenopathy noted Chest: COMMONS NORMALS: normal inspection of the chest Resp: COMMON NORMALS: normal respiratory effort, No retractions, No use of accessory muscles and clear to auscultation bilaterally AUSCULTATION: clear to auscultation bilaterally Cardio: COMMON NORMALS: regular rate, regular rhythm, S1 normal heart sound present and S2 normal heart sound present RATE: regular rate RHYTHM: r egular rhythm HEART SOUNDS: S1 normal heart sound present and S2 normal heart sound present GI: OTHER: Abdomen is soft, distended, no guarding, no rebound, no rigidity, : COMMON NORMALS: Yes no CVA tenderness Back/Pelvis: COMMON NORMALS: no CVA tenderness Extremity: COMMON NORMALS: no pedal edema Neuro: OTHER: Patient is alert to person, not to place, not to time, does not follow commands at times he is encephalopathic Skin: NARRATIVE SKIN EXAM: Patient is jaundiced Urinary Catheter Management: Estevez: Cath Placed During This Visit: yes Urinary Catheter Date of Insertion: 09/27/23 Urinary Catheter Time of Insertion: 12:06 Data 09/27/23 11:15 09/27/23 11:15 A&P Assessment and plan (1) Upper GI bleed: (2) Spontaneous bacterial peritonitis: (3) Sepsis: (4) Cirrhosis: (5) Elevated bilirubin: (6) Thrombocytopenia: (7) Elevated INR: (8) Hepatorenal syndrome: (9) Acute renal failure: (10) Lactic acidosis: (11) Metabolic acidosis: (12) Anemia: (13) Shock: (14) Hyponatremia: (15) Uremia: (16) Acute encephalopathy: (17) Hypoalbuminemia: Plan Upper GI bleed -The complaint by the jail the reason he was sent over, was due to concerns for bleeding, initially thought to be nosebleed, ? On examination his posterior pharynx is narrow pharynx is caked in the thick viscous black tarry fluid, I also observed in the posterior pharynx, he has thick black tarry fluid, -And almost seems like he has had black tarry emesis -INR is 2, hemoglobin 9.4, platelet count 55,000, CT scan abdomen pelvis no significant evidence of varices, does have liver cirrhosis, no history of alcoholism in the last year ? Plan, ? N.p.o., ? General surgery consulted for consideration of EGD, ? Monitor hemoglobin every 4 hours -Monitor INR ? Monitor hemodynamics, ? Protonix ?Carafate, ? Octreotide, -Avoid all blood thinners Acute encephalopathy ?ammonia levels pending ? Uremia ? Neurochecks, aspiration precautions, ? Will monitor mentation closely, ? Possible SBP, sepsis Abdomen distended, complains of abdominal pain, leukocytosis, elevated lactic acid, elevated Pro-Michael - Concerns for spontaneous bacterial peritonitis ? Plan, ? Ordered ascites studies - start meropenem Nelia ? Start albumin, ? Serial abdominal exams, ? Monitor cultures, blood cultures, ? Ascites cultures Staph aureus UTI, ? During last hospitalization had Staph aureus UTI, which is quite concerning -Will start on Zyvox Shock -Some component related to hypoalbuminemia, liver cirrhosis, ? Concerns for septic shock given concern for spontaneous bacterial peritonitis, ? Also concern for upper GI bleed, ? Receiving albumin therapy, -Is receiving midodrine, ? Maintain MAP greater than 65, ? Start Levophed therapy Uremia ?Likely associated with upper GI bleed ?also component of renal failure, Acute renal failure ? Has evidence of acute renal failure ? Likely related to shock, sepsis,'s history of Staph aureus UTI SBP upper GI bleed, complex ?possibly component of hepatorenal syndrome ? Monitor urine output, -Is receiving albumin therapy, ? Receiving midodrine, pressor therapy ? Nephrology consulted Hyponatremia ? Likely related to liver cirrhosis, monitor mentation Elevated lactic acid ? Likely secondary to as above Liver cirrhosis, ? Bilirubin 5.1, INR 2.31, creatinine 5.9, albumin 2.3 ? MELD score 35 points, estimated 3-month mortality 52.6 Patient's prognosis is guarded, status is critical, # Full code, ? SCDs for DVT prophylaxis Spoke to ER provider, spoke to nursing staff, spoke to [facility] facility, spoke to general surgery, spoke to nephrology Attestations 2 Medical Necessity Statement*: Patient requires hospitalization, inpatient, greater than 2 minutes, for concerns for GI bleed, spontaneous bacterial peritonitis, sepsis, septic shock, anemia, thrombocytopenia, uremia, acute renal failure, hepatorenal syndromes, hepatic encephalopathy, encephalopathy Coding Level of Care Code Critical Care >/= 30 minutes Critical care time (in minutes): 60 The high probability of a clinically significant, sudden or life threatening deterioration, as referenced in this documentation, required my full and direct attention, intervention and personal management. The critical care time shown is in addition to time spent performing any reported separately billable procedures and includes the following: [x] Data and vital sign review and interpretation [x ] Patient assessment, examination and intervention [x] Medication orders and management [x] Patient/Family updates as able [x] Care Coordination and Documentation. Diagnoses Upper GI bleed K92.2 Spontaneous bacterial peritonitis K65.2 Sepsis A41.9 Cirrhosis K74.60 Elevated bilirubin R17 Thrombocytopenia D69.6 Elevated INR R79.1 Hepatorenal syndrome K76.7 Acute renal failure N17.9 Lactic acidosis E87.20 Metabolic acidosis E87.20 Anemia D64.9 Shock R57.9 Hyponatremia E87.1 Uremia N19 Acute encephalopathy G93.40 Hypoalbuminemia E88.09
--- NOTE | 2023-09-27 16:27 | PC.NURSE ---
To ICU at 1610 via stretcher, moved to bed via 2x staff members. VSS. Patient awake/alert, on RA.
[2023-09-27 16:38] LABS: ABG PCO2 27.5 mmHg (35-45); ABG PH Result 7.41 (7.35-7.45); Arterial Blood Gas Hematocrit 21.6 % (42-52); Base Excess ABG -6.6 mmol/L (-2.0-2.0); Blood Gas Allen Test Pos; Blood Gas Sample Type Arterial; HCO3 ABG 17.4 mmol/L (22-26); PO2 ABG 69.2 mmHg (80.0-100.0)
[2023-09-27 16:39] LABS: Blood Gas Operator Identificat CAK; Blood Gas Sample Site Radial, left; Oxygen Device ROOM AIR; PO2 FiO2 Ratio Arterial Blood 0
[2023-09-27] MEDS: albumin 50 G/200 ML BAG 60 G IV (16:53)
--- NOTE | 2023-09-27 17:07 | ECG_ITS ---
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 Measurements Intervals [place] Rate: 142 P: 0 MS: 0 QRS: 6 QRSD: 100 T: -31 QT: 321 QTc: 495 Interpretive Statements ATRIAL FIBRILLATION WITH RAPID VENTRICULAR RESPONSE NONSPECIFIC ST & T-WAVE ABNORMALITY Compared to ECG 09/27/2023 15:48:07 Sinus rhythm no longer present T-wave abnormality still present Electronically Signed On 09-27-2023 18:34:10 AUTOTRANSFUSIONIST by Tristen Baez M.D. [id number]
--- NOTE | 2023-09-27 17:32 | XRR_ITS ---
PROCEDURE INFORMATION: Exam: XR Bilateral Hips Exam date and time: 09/27/2023 6:10 PM Age: 63 years old Clinical indication: Hip pain; Patient HX: Evaluate for fracture on right hip; Additional info: Fracture? Femur TECHNIQUE: Imaging protocol: Radiologic exam of the bilateral hips. Views: 2 views of hips with pelvis when performed. COMPAR[place] [id number] 09/27/2023 3:26 PM FINDINGS: Bones/joints: Unremarkable. No acute fracture. Soft tissues: Unremarkable. XR/XR hip BI 2V wo/w pel [id number] IMPRESSION: No acute findings.
[2023-09-27 17:54] LABS: Ammonia 46 umol/L (16-60)
[2023-09-27 17:56] LABS: Partial Thromboplastin Time 49.1 SECONDS (23.9-36.7)
[2023-09-27] MEDS: amiodarone 150 MG/100 ML PREMIX 400 MG IV (17:58)
[2023-09-27 18:03] LABS: Troponin(5th) Baseline 30 ng/L (0-15)
[2023-09-27] MEDS: octreotide 500 MCG in sodium chloride 0.9% (100 ml) 100 ML 10.1 MCG IV (18:04)
[2023-09-27] MEDS: pantoprazole 40 mg SDV IVP (18:04)
[2023-09-27] MEDS: sucralfate 1 gm/10 mL Oral Liq UDC PO ×2 (18:04→23:04)
[2023-09-27] MEDS: midodrine 5 mg TABLET 10 MG PO (18:06)
[2023-09-27] MEDS: octreotide 100 mcg/mL SDV 50 MCG IVP (18:06)
[2023-09-27 18:12] LABS: C Reactive Protein 99.3 mg/L (0.0-4.9); Iron 53 ug/dL (59-158); Lactic Sepsis W/Reflex 4.6 mmol/L (0.5-2.2); Lipase 24 U/L (13-60); NT Pro B Type Natriuretic Pept 2715 pg/mL (0-125); Percent Saturation 73.6 % (20-50); Total Iron Binding Capacity 72 mcg/dl; Unsaturated Iron Binding 19 ug/dL (112-347)
[2023-09-27 18:25] LABS: Ferritin 1577 ng/mL (30-400)
[2023-09-27 18:33] LABS: Gamma Glutamyl Transferase 18 U/L (8-61); Total Bilirubin 4.6 mg/dL (0.15-1.2)
[2023-09-27 18:48] LABS: Glucose Point of Care 94 mg/dL (70-110)
[2023-09-27 18:56] LABS: Thyroid Stimulating Hormone 4.33 uIU/mL (0.27-4.20)
[2023-09-27 19:09] LABS: Reflex Lactate Order REFLEX LACTIC ORDERD
[2023-09-27 20:04] LABS: Troponin 5 2HR 28.66 ng/L (0-15)
[2023-09-27 20:08] LABS: Troponin 5 2HR Delta -1.34 ABS# (0-10)
--- NOTE | 2023-09-27 20:30 | P.CONIM_ITS ---
Providers/Reason For Consult 2 Consulting Physician/Specialty*: Mindi Low DO, telenephrology Reason for Consult*: Acute kidney injury Requesting Physician: Cornell Campos MD Attending Physician: Cornell Campos MD Primary Care Provider: Nancy Benavides MD History of Present Illness History of Present Illness Jase Resendiz is a 63 year old male presented for evaluation from [place] for weakness, altered mental status, abnormal labs, possible UGI bleed. Medications/Allergies Home Medications Medication Instructions Recorded Confirmed Last Taken Type SHOULDER IMMOBILIZER #1 ea 06/12/23 09/27/23 Unknown Rx arm sling #1 ea 07/18/23 09/27/23 Unknown Rx folic acid 1 mg tablet 1 mg PO DAILY #30 tabs 08/31/23 09/27/23 09/27/23 Rx furosemide 20 mg tablet 20 mg PO DAILY@0800 #30 tabs 08/31/23 09/27/23 09/27/23 Rx midodrine 5 mg tablet 7.5 mg (1.5 x 5 mg) PO TID #135 08/31/23 09/27/23 09/27/23 Rx tabs pantoprazole 40 mg tablet,delayed 40 mg PO BID #60 tabs 08/31/23 09/27/23 09/27/23 Rx release thiamine mononitrate (vit B1) 100 100 mg PO DAILY #30 tabs 08/31/23 09/27/23 09/27/23 Rx mg tablet (Vitamin B-1 (mononitrate)) tramadol 50 mg tablet 50 mg PO TID PRN pain #20 tabs 08/31/23 09/27/23 Unknown Rx bisacodyl 10 mg rectal suppository 10 mg TX DAILY PRN Constipation 09/27/23 09/27/23 Unknown History (Dulcolax (bisacodyl)) magnesium hydroxide 400 mg/5 mL 30 ml PO DAILY PRN Constipation 09/27/23 09/27/23 Unknown History oral suspension (Milk of Magnesia) Allergies Allergy/AdvReac Type Severity Reaction Status Date / Time codeine Allergy sick Verified 09/27/23 11:29 morphine Allergy sick Verified 09/27/23 11:29 Penicillins Allergy sick Verified 09/27/23 11:29 Current Medications Generic Name Dose Route Start Last Admin Trade Name Freq PRN Reason Stop Dose Admin Albumin Human 50 g in 200 mls @ 60 mls/hr 09/27/23 17:32 09/27/23 17:44 Albumin IV 09/27/23 20:51 Not Given ONCE ONE Octreotide Acetate 500 mcg/ 101 mls @ 10.1 mls/hr 09/27/23 17:32 09/27/23 18:04 Sodium Chloride IV 50 mcg/hr .Q10H LUCERO 10.1 mls/hr Administration 50 MCG/HR Amiodarone HCl/Dextrose 360 mg in 200 mls @ 0 mls/hr 09/27/23 18:00 09/27/23 18:06 Nexterone IV 1 mg/min .Q0M LUCERO 33.33 mls/hr Administration Protocol Per Protocol Midodrine 10 mg 09/27/23 17:32 09/27/23 18:06 Midodrine 5 Mg Tablet PO 10 mg Q8H LUCERO Administration Pantoprazole Sodium 40 mg 09/27/23 17:32 09/27/23 18:04 Pantoprazole 40 Mg Sdv IVP 40 mg Q12H LUCERO Administration Sucralfate 1 gm 09/27/23 17:32 09/27/23 18:04 Sucralfate 1 Gm/10 Ml Oral Liq Udc PO 1 gm Q6H LUCERO Administration PFSH Acute 2 PFSH: Medical History Pancytopenia Psychiatric care Osteoarthritis of right knee Hyperlipidemia Depression Surgical History History of arthroscopy of right knee Family History Brother Lung disease asbestos Denies family history of Diabetes CAD (coronary artery disease) Clotting disorder Cancer Stroke Social History Smoking and tobacco/nicotine status: current every day tobacco/nicotine user cigarettes Packs smoked per day: 0.5 Years cigarettes smoked: 40 [ Other cigarette details: 1 pack every 2 weeks] and smokeless tobacco Smokeless tobacco user: chewing tobacco Smokeless tobacco details: used at least 40 years Alcohol intake: never Substance/Drug Use: never Marital status: Single Number of children: 1 Number of grandchildren: 0 Current occupational status: disabled 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 Special preet needs: No Vitals/I&O/Wt Last Vital Signs Temp 96.4 F L 09/27/23 17:15 Pulse 136 H 09/27/23 18:30 Resp 23 H 09/27/23 18:30 BP 113/74 09/27/23 18:30 Pulse Ox 94 09/27/23 18:30 O2 Del Method Nasal Cannula 09/27/23 18:30 O2 Flow Rate 1 09/27/23 18:30 09/27/23 09/27/23 09/27/23 06:59 14:59 22:59 Intake Total 1000 / 1000 2854.46 / 3854.46 Output Total 200 / 200 Balance 1000 / 1000 2654.46 / 3654.46 Weight last 48 hrs Weight 87.203 kg Weight 73.482 kg Physical Exam 2 Urinary Catheter Management: Estevez: Cath Placed During This Visit: yes Reason for Continuing Indwelling Catheter: Accurate Measurement of Urinary Output in Critically Ill Patients Urinary Catheter Date of Insertion: 09/27/23 Urinary Catheter Time of Insertion: 12:06 Data 09/28/23 09:20 09/28/23 06:54 Other Labs: lactic acid 3.4, Ca 8, Mg 2.3, INR 2.31, albumin 2.3 urinalysis 3+ blood, many RBC CT Abd/Pel: Radiologist's impression: 1. Large amount of ascites is new since July 2023. 2. Extensive soft tissue and mesenteric edema. 3. Cirrhotic appearing liver. 4. Low lung volumes due to poor inspiration and poor expansion from the peritoneal ascites. 5. Moderate cardiomegaly. 6. 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 7. kidneys no obstruction A&P Assessment and plan (1) Acute kidney injury: Plan 1. Acute kidney injury, possible HRS 2. Decompensated cirrhosis, possible SBP 3. Metabolic acidosis, increased anion gap, lactic (possible sepsis) and renal failure 4. Hypervolemic hyponatremia, anasarca 5. Coagulopathy 5. Possible UGI Bleed 6. Altered mentation Recommend: Urine sodium/Cr, CK. Agree with octreotide, midodrine, IV albumin Consult Attestations 2 Medical Necessity Statement: critically ill in ICU Time Spent in Patient Care: less than 15 minutes Coding Level of Care Code Acute Code for [facility] Fwd Diagnoses Acute kidney injury N17.9
[2023-09-27 20:36] LABS: Lactic Acid level (Lactate) 3.3 mmol/L (0.5-2.2)
[2023-09-27 21:36] LABS: Estmated Average Glucose 74; Hemoglobin A1C 4.2 % (4.0-6.0)
[2023-09-27 21:57] LABS: Hematocrit 23.7 % (37-53)
[2023-09-27 23:17] LABS: Troponin 5 6HR 32.78 ng/L (0-15); Troponin 5 6HR Delta 2.78 ng/L (0-12)
[2023-09-28] VITALS (128 sets, daily range): BP systolic 82–145; BP diastolic 45–82; PULSE 67–101; RESP 13–100; TEMP 35.9–36.6; O2SAT 89–96
[2023-09-28 01:42] LABS: Hematocrit 23.5 % (37-53)
[2023-09-28] MEDS: octreotide 500 MCG in sodium chloride 0.9% (100 ml) 100 ML 10.1 MCG IV (03:29)
[2023-09-28] MEDS: HYDROmorphone 1 mg/mL INJ 1 mL 0.5 MG IVP (03:29)
[2023-09-28] MEDS: linezolid premix 600 MG/300 ML PREMIX 300 MG IV (03:34)
[2023-09-28] MEDS: midodrine 5 mg TABLET 10 MG PO ×2 (03:34→09:23)
[2023-09-28] MEDS: sucralfate 1 gm/10 mL Oral Liq UDC PO (05:34)
[2023-09-28] MEDS: meropenem 1,000 MG in sodium chloride 0.9% (plus) 50 ML 100 MG IV (05:35)
[2023-09-28] MEDS: pantoprazole 40 mg SDV IVP (05:35)
[2023-09-28 07:10] LABS: Basophils % 0.2 %; Eosinophils % 0.2 %; Hematocrit 26.9 % (37-53); Lymphocytes # 1.7 10^3/uL (0.8-4.8); Lymphocytes % 8.8 %; Mean Corpuscular HGB Conc 33.8 g/dL (30-55); Mean Corpuscular Hemoglobin 34.1 pg (27-33); Mean Corpuscular Volume 100.7 fl (82-101); Mean Platelet Volume 11.6 fL (7.4-10.4); Monocytes # 0.8 10^3/uL (0.2-0.9); Monocytes % 3.9 %; Neutrophils # 16.66 10^3/uL (1.8-7.7); Neutrophils % 85.2 %; Nucleated Red Blood Cells % 0 %; Platelet Count 55 10^3/cmm (157-399); Red Blood Count 2.67 10^6/uL (3.85-5.65); Red Cell Distribution Width 18.5 % (12.1-15.1); White Blood Count 19.53 10^3/uL (3.29-11.43)
[2023-09-28 07:24] LABS: Partial Thromboplastin Time 57.1 SECONDS (23.9-36.7)
[2023-09-28 07:27] LABS: Glucose Point of Care 159 mg/dL (70-110)
[2023-09-28 07:28] LABS: INR 2.86 (0.8-1.2)
[2023-09-28 07:30] LABS: Ammonia 46 umol/L (16-60)
[2023-09-28 07:31] LABS: Alanine Aminotransferase 25 U/L (0-41); Albumin Level 2.6 g/dL (3.5-5.2); Alkaline Phosphatase 111 U/L (40-130); Anion Gap 23.2 (5-19); Aspartate Amino Transferase 60 U/L (0-40); C Reactive Protein 91.6 mg/L (0.0-4.9); Calcium 7.8 mg/dL (8.5-10.5); Carbon Dioxide 16 mmol/L (22-29); Chloride 96 mmol/L (98-107); Globulin 3.9 g/dL (1.3-4.6); Glomerular Filtration Rate 9.4 mL/min (90-130); Glucose 155 mg/dL (65-115); Magnesium 2.2 mg/dL (1.7-2.3); Osmolality Calculated 304 mOsm/kg (285-295); Phosphorus 6.5 mg/dL (2.5-4.5); Potassium 5.2 mmol/L (3.5-5.1); Sodium 130 mmol/L (136-145); Total Bilirubin 5.6 mg/dL (0.15-1.2); Total Protein 6.5 g/dL (6.6-8.7)
[2023-09-28 07:40] LABS: NT Pro B Type Natriuretic Pept 5724 pg/mL (0-125); Procalcitonin 2.03 ng/mL (0-0.5)
[2023-09-28 07:51] LABS: Creatine Phosphokinase 50 U/L (39-308)
[2023-09-28 07:55] LABS: Blood Urea Nitrogen 98 mg/dL (8-23)
[2023-09-28] MEDS: folic acid 1 mg Tablet PO (09:23)
[2023-09-28] MEDS: albumin 25 G/100 ML BAG 60 G IV (09:23)
[2023-09-28] MEDS: sodium bicarbonate 8.4% 1 mEq/mL 50mL Syr 50 MEQ IVP (09:23)
[2023-09-28] MEDS: thiamine 100 mg Tablet PO (09:24)
[2023-09-28 09:56] LABS: Hematocrit 27.4 % (37-53)
[2023-09-28 11:16] LABS: Glucose Point of Care 133 mg/dL (70-110)
--- NOTE | 2023-09-28 12:35 | P.PN_ITS ---
Vitals/I&O/Wt Last Vital Signs Temp 97.2 F L 09/28/23 12:00 Pulse 71 09/28/23 09:41 Resp 18 09/28/23 06:03 BP 100/57 09/28/23 06:03 Pulse Ox 92 09/28/23 09:41 O2 Del Method Nasal Cannula 09/28/23 09:41 O2 Flow Rate 2 09/28/23 09:41 09/27/23 09/28/23 09/28/23 22:59 06:59 14:59 Intake Total 2904.46 / 3904.46 895.108 / 4799.568 100 / 100 Output Total 200 / 200 100 / 300 Balance 2704.46 / 3704.46 795.108 / 4499.568 100 / 100 Weight last 48 hrs Weight 87.543 kg Weight 87.203 kg Weight 73.482 kg Physical Exam 2 Urinary Catheter Management: Estevez: Cath Placed During This Visit: yes Reason for Continuing Indwelling Catheter: Accurate Measurement of Urinary Output in Critically Ill Patients Urinary Catheter Date of Insertion: 09/27/23 Urinary Catheter Time of Insertion: 12:06 Data 09/28/23 09:20 09/28/23 06:54 Other data: seen via telemedicine with assistance of RN at bedside A&P Assessment and plan (1) Acute kidney injury: Plan 1. Acute kidney injury, possible HRS 2. Decompensated cirrhosis, possible SBP 3. Metabolic acidosis, increased anion gap, lactic (possible sepsis) and renal failure 4. Hypervolemic hyponatremia, anasarca 5. Coagulopathy 5. Possible UGI Bleed 6. Altered mentation Recommend: Urine sodium/Cr, CK. Agree with octreotide, midodrine, IV albumin Attestations 2 Medical Necessity Statement*: critically ill in ICU Coding Level of Care Code Acute Code for [facility] Fwd Diagnoses Acute kidney injury N17.9
--- NOTE | 2023-09-28 15:26 | P.PN_ITS ---
Subjective 2 Subjective: - Patient was examined this morning, ? He is alert to person, not to place, not to time he does not follow commands, ? Acute encephalopathy likely secondary to sepsis, septic shock secondary to UTI, spontaneous bacterial peritonitis ? Continues to have acute renal failure, poor urine output, likely hepatorenal syndrome from liver cirrhosis, ? His white blood cell count is up to 19.53, ? No episodes of GI bleed during the night, hemoglobin stable at 9.1, platelet count 55,000, INR is elevated 2.86 ? Sodium 130, metabolic acidosis with bicarb of 16, ? Creatinine 6.8, has severe uremia 98 ? Lactic acid is 3.3 ? Elevated Pro-Michael, CRP, ? I did detailed discussion with patient about his liver failure, renal failure, SBP, sepsis, septic shock, advanced liver failure likely acute on chronic liver failure however I cannot get any reasonable answer for from him, ? I spoke to patient's brother he tells me that he is coming from [place] to see his brother Jase, that Jase does not have any family he does have a son which is a lost son, nobody has had contact with him for many years, he does not know how anybody could get in contact with him, he has never been , there is no other next of kin, ? I was able to have a meeting with patient's brother Moe Resendiz and Jase, next ?patient is much more alert and awake to person, to place, but not to time ? I was have able to have a detailed discussion, ? We discussed patient's acute on chronic liver failure, his MELD score which is elevated he has a 3-month mortality of over 50% from his liver failure, currently I do not believe he is a candidate for liver failure liver transplant, but he has not drink alcohol in over a year has been at the senior care, has been compliant if he could survive this acute episode of his liver failure, we could certainly consider transfer or consultation for liver transplant but it would not be an acute transplant, consideration, it would be more we would get him clinically better discharge him and have him follow-up with transplant team at tertiary level center but certainly we can discuss with transplant center, ? But with his now acute renal failure hepatorenal syndrome, this is a increased marker of morbidity and mortality, he is going to need dialysis as his urine output remains minimal, the renal failure likely is component of the liver failure, also component of sepsis, I have consulted nephrology, I think patient is likely to need dialysis catheter placement with dialysis to help with the uremia and help with the renal failure and electrolyte abnormalities he is developing, ? In terms of his spontaneous bacterial peritonitis he is in need of paracentesis IV antibiotics for a prolonged period of time, the SBP does carry significant morbidity and mortality ?I have also treating him for possible Staph aureus UTI, as during his last hospitalization he had a Staph aureus UTI, ? His prealbumin is 3, his albumin is 2.6, his creatinine 6.1, INR 2.83, he certainly has advanced liver failure and poor prognostic indicators ? Interventions I offered was continued medical interventions pursuing dialysis pursuing paracentesis pursuing EGD for concerns for upper GI bleed given his black tarry emesis, none overnight but I am worried that he might have a slow upper GI bleed, then certainly once he is stabilized from this consideration of transplant [place] and transfer to tertiary level center currently he is quite ill, he remains hypotensive remains in sepsis, septic shock, remains encephalopathic, ? Patient's brother data keeps shaking his head he would not want Jase to go through all this, he just would want Jase to be comfortable, Jase also tells me during our discussion that all he wants to do is to be comfortable, he tells me he does not want to dialysis, he just wants to be comfortable, he just wants us to ease his pain and ease his suffering ? I explicitly asked Jase if he wanted dialysis he says no, explicitly asked Jase if he Any intervention for his liver failure he tells me no, I asked him if he wanted for me to do medical interventions, I was unable to get a straightforward answer, I asked him if he just wanted to be made comfortable, and for us to ease his pain easing suffering allow him to pass away comfortably, he tells me yes, I asked him that if he understands that his liver cirrhosis is end-stage but that does not mean that there are no options available to him we could certainly consider dialysis consideration of liver transplant but I do not feel that it really he had a grasp of the situation although he kept saying is just let me be comfortable, ? I discussed the case in detail with patient's brother at bedside patient's brother declined dialysis for Jase, declined any consideration of liver transplant, declined any further, medical interventions, only he wants us to do is make Jase comfortable for us to ease his pain easing suffering allow him to pass away comfortably, ? We had a detailed discussion about comfort care and hospice, Jase's brother catherine voiced understanding, all questions answered, shared decision making after discussing the risk and benefits all options, moe wanted Jase to be on hospice/comfort care, ? And during my discussion with Jase and moe, Jase Voicing that he just wanted to be comfortable, so I think that this is in line with Jase's goals of care however Jase is encephalopathic so I cannot really get a informed decision from him Vitals/I&O/Wt Last Vital Signs Temp 97.2 F L 09/28/23 12:00 Pulse 71 09/28/23 14:00 Resp 18 09/28/23 06:03 BP 100/57 09/28/23 06:03 Pulse Ox 92 09/28/23 09:41 O2 Del Method Nasal Cannula 09/28/23 09:41 O2 Flow Rate 2 09/28/23 09:41 09/28/23 09/28/23 09/28/23 06:59 14:59 22:59 Intake Total 895.108 / 4799.568 100 / 100 Output Total 100 / 300 Balance 795.108 / 4499.568 100 / 100 Weight last 48 hrs Weight 87.543 kg Weight 87.203 kg Weight 73.482 kg Physical Exam 2 Const: EXAM LIMITATIONS: altered mental status GENERAL APPEARANCE: l ethargic ORIENTATION/CONSCIOUSNESS: Yes awake, Yes oriented to person, Yes confused, Yes patient obtunded and Yes lethargic; not oriented to place and not oriented to time Eye: OTHER: Scleral icterus Resp: COMMON NORMALS: normal respiratory effort, No retractions and No use of accessory muscles Cardio: COMMON NORMALS: regular rate, regular rhythm, S1 normal heart sound present and S2 normal heart sound present RATE: regular rate RHYTHM: r egular rhythm HEART SOUNDS: S1 normal heart sound present and S2 normal heart sound present GI: OTHER: Abdomen soft, distended, ascites present, diffuse tenderness Back/Pelvis: OTHER: Diffuse anasarca Extremity: COMMON NORMALS: no pedal edema Neuro: SENSORIUM/ORIENTATION: Yes oriented to person, No oriented to place, No oriented to time and Yes lethargic Urinary Catheter Management: Estevez: Cath Placed During This Visit: yes Reason for Continuing Indwelling Catheter: Accurate Measurement of Urinary Output in Critically Ill Patients Urinary Catheter Date of Insertion: 09/27/23 Urinary Catheter Time of Insertion: 12:06 Sepsis: Is patient septic: Yes Focused sepsis exam performed: Yes F ocused sepsis exam: DP PT pulses not palpable, cap refill greater than 3 seconds, mild mottling bilateral extremities Date exam was performed: 09/28/23 Time exam was performed: 08:00 Data 09/28/23 09:20 09/28/23 06:54 A&P Assessment and plan (1) Upper GI bleed: (2) Spontaneous bacterial peritonitis: (3) Sepsis: (4) Cirrhosis: (5) Elevated bilirubin: (6) Thrombocytopenia: (7) Elevated INR: (8) Hepatorenal syndrome: (9) Acute renal failure: (10) Lactic acidosis: (11) Metabolic acidosis: (12) Anemia: (13) Shock: (14) Hyponatremia: (15) Uremia: (16) Acute encephalopathy: (17) Hypoalbuminemia: Plan Patient will be transitioning to hospice/comfort care, for acute decompensated liver failure, with acute renal failure with hepatorenal syndrome with sepsis septic shock, concerns for Staph aureus UTI concerns for spontaneous bacterial peritonitis, acute encephalopathy, elevated INR, elevated troponins, deconditioned status, uremia, hyponatremia, Upper GI bleed -The complaint by the senior care the reason he was sent over, was due to concerns for bleeding, initially thought to be nosebleed, ? On examination his posterior pharynx is narrow pharynx is caked in the thick viscous black tarry fluid, I also observed in the posterior pharynx, he has thick black tarry fluid, -And almost seems like he has had black tarry emesis -INR is 2, hemoglobin 9.4, platelet count 55,000, CT scan abdomen pelvis no significant evidence of varices, does have liver cirrhosis, no history of alcoholism in the last year ? Plan, ? N.p.o., ? General surgery consulted for consideration of EGD, ? Monitor hemoglobin every 4 hours -Monitor INR ? Monitor hemodynamics, ? Protonix ?Carafate, ? Octreotide, -Avoid all blood thinners Acute encephalopathy ?ammonia levels pending ? Uremia ? Neurochecks, aspiration precautions, ? Will monitor mentation closely, ? Possible SBP, sepsis Abdomen distended, complains of abdominal pain, leukocytosis, elevated lactic acid, elevated Pro-Michael - Concerns for spontaneous bacterial peritonitis ? Plan, ? Ordered ascites studies - start meropenem Nelia ? Start albumin, ? Serial abdominal exams, ? Monitor cultures, blood cultures, ? Ascites cultures Staph aureus UTI, ? During last hospitalization had Staph aureus UTI, which is quite concerning -Will start on Zyvox Shock -Some component related to hypoalbuminemia, liver cirrhosis, ? Concerns for septic shock given concern for spontaneous bacterial peritonitis, ? Also concern for upper GI bleed, ? Receiving albumin therapy, -Is receiving midodrine, ? Maintain MAP greater than 65, ? Start Levophed therapy Uremia ?Likely associated with upper GI bleed ?also component of renal failure, Acute renal failure ? Has evidence of acute renal failure ? Likely related to shock, sepsis,'s history of Staph aureus UTI SBP upper GI bleed, complex ?possibly component of hepatorenal syndrome ? Monitor urine output, -Is receiving albumin therapy, ? Receiving midodrine, pressor therapy ? Nephrology consulted Hyponatremia ? Likely related to liver cirrhosis, monitor mentation Elevated lactic acid ? Likely secondary to as above Liver cirrhosis, ? Bilirubin 5.1, INR 2.31, creatinine 5.9, albumin 2.3 ? MELD score 35 points, estimated 3-month mortality 52.6 Patient's prognosis is guarded, status is critical, # Full code, ? SCDs for DVT prophylaxis Spoke to ER provider, spoke to nursing staff, spoke to [facility] facility, spoke to general surgery, spoke to nephrology Attestations 2 Medical Necessity Statement*: Patient's proceeding with comfort care Coding Level of Care Code Critical Care >/= 30 minutes Critical care time (in minutes): 45 The high probability of a clinically significant, sudden or life threatening deterioration, as referenced in this documentation, required my full and direct attention, intervention and personal management. The critical care time shown is in addition to time spent performing any reported separately billable procedures and includes the following: [x] Data and vital sign review and interpretation [x ] Patient assessment, examination and intervention [x] Medication orders and management [x] Patient/Family updates as able [x] Care Coordination and Documentation. Diagnoses Upper GI bleed K92.2 Spontaneous bacterial peritonitis K65.2 Sepsis A41.9 Cirrhosis K74.60 Elevated bilirubin R17 Thrombocytopenia D69.6 Elevated INR R79.1 Hepatorenal syndrome K76.7 Acute renal failure N17.9 Lactic acidosis E87.20 Metabolic acidosis E87.20 Anemia D64.9 Shock R57.9 Hyponatremia E87.1 Uremia N19 Acute encephalopathy G93.40 Hypoalbuminemia E88.09
[2023-09-28] MEDS: morphine 4 mg/mL SDV 1 mL 1 MG IVP (17:30)
[2023-09-28 23:35] LABS: Creatinine Urine, Random 158 mg/dL (39-259); Urine Random Sodium 21 mmol/L
[2023-09-29] VITALS (9 sets, daily range): BP systolic 86–117; BP diastolic 57–75; PULSE 61–93; RESP 16–22; TEMP 36–36.5; O2SAT 91–98
[2023-09-29] MEDS: morphine 4 mg/mL SDV 1 mL 1 MG IVP (05:21)
--- NOTE | 2023-09-29 05:52 | PC.NURSE ---
Pt update provided to [place] charge nurse at [facility]. all questions answered.
[2023-09-29] MEDS: morphine 10 mg/0.5 mL oral liq UD SUBLINGUAL ×2 (09:54→17:11)
--- NOTE | 2023-09-29 12:19 | PM.DCS ---
Discharge Providers Date of Admission: 09/27/23 15:59 Date of Discharge: September 29, 2023 Attending Provider at Admission: Cornell Campos MD Attending Provider at Discharge: Cornell Campos MD Primary Care Provider: Nancy Benavides MD Diagnoses at Discharge Discharge Diagnosis (1) Upper GI bleed: Status: Acute (2) Spontaneous bacterial peritonitis: Status: Acute (3) Sepsis: Status: Acute (4) Cirrhosis: Status: Acute (5) Elevated bilirubin: Status: Acute (6) Thrombocytopenia: Status: Acute (7) Elevated INR: Status: Acute (8) Hepatorenal syndrome: Status: Acute (9) Acute renal failure: Status: Acute (10) Lactic acidosis: Status: Acute (11) Metabolic acidosis: Status: Acute (12) Anemia: Status: Acute (13) Shock: Status: Acute (14) Hyponatremia: Status: Acute (15) Uremia: Status: Acute (16) Acute encephalopathy: Status: Acute (17) Hypoalbuminemia: Status: Acute Reason for Visit Reason for Visit: Gen Weakness Hospital Course Hospital Course Jase Resendiz is a 63 year old male with a known history of liver cirrhosis, history of pancytopenia, history of alcoholism, history of hyperlipidemia recent hospitalization for fall and hyponatremia, who presents to [facility] due to abnormal blood work I was told by ER physician, in the emergency room, he was found to have lactic acid of 3.4, Pro-Michael 2.54, INR of 2.31, sodium 126, BUN 100, creatinine 5.9, WBC 13.98, platelet count 57,000, hemoglobin 9.4, I had advised ER provider to order a CT scan of the abdomen, workup for sepsis, given his history of liver cirrhosis concerns for possible SBP, I saw that he was recently hospitalized for Staph aureus UTI which is quite unusual, to start him on broad-spectrum antibiotic therapy meropenem, Zyvox, fluid therapy, blood pressures are soft if Levophed is needed I advise ER provider to give it to him, and order stat CT scan. Patient was seen thereafter, on examination, patient is alert to person, not to place, not to time, his oral pharynx and nasopharynx is caked in thick coffee ground fluid, he tells me that he has been having the fpc thought initial nosebleeds, but now it is in his mouth, when I asked him explicitly has not been vomiting this up, he denies it, but his oropharynx on examination his posterior pharynx, his nasopharynx is caked in coffee-ground viscous fluid, it seems like, if he ground emesis, I asked him if he had a history of esophageal varices, I was not able to get a straightforward answer from him, currently blood pressure is 99/60, pulse 90, respiratory 20, saturating 96% on room air, his hemoglobin is stable compared to the his last admission, platelet count stable, INR is elevated, I asked him if he was on any blood thinners he denied this, his BUN is 100, creatinine is 5.9 I spoke to [facility], [facility] and tells me that patient was having coffee-ground bloody noses, which she thought initially was nosebleed, but then his oropharynx was covered in this coffee-ground liquid, so they thought he might be having some sort of bleeding, so they sent him to the ER for evaluation, there were also worried about his mentation, his weakness, Patient was admitted to [facility] for sepsis, septic shock, spontaneous bacterial peritonitis, acute renal failure, with hepatorenal syndrome, hyponatremia, elevated lactic acid, abdominal distention, acute encephalopathy, acute decompensated liver failure, GI bleed. Patient was monitored in ICU, received breast antibiotic therapy, medical management, nephrology was consulted, general surgery was consulted. Due to patient's acute decompensated liver failure, elevated INR, hepatorenal syndrome, septic shock, spotty karen peritonitis, extensive discussion with patient and family about continue medical intervention consideration of dialysis paracentesis, EGD, consideration transfer for liver transplant versus comfort care. After discussion of the risk and benefits of all options, shared decision making, all congestion, patient and family agreed to comfort care. Patient was monitored as inpatient for 24 hours to comfort care, discharged to [facility] on comfort care. Physical Exam Const: COMMON NORMALS: no acute distress EXAM LIMITATIONS: altered mental status ORIENTATION/CONSCIOUSNESS: Yes awake and Yes oriented to person; not oriented to place and not oriented to time Resp: COMMON NORMALS: normal respiratory effort, No retractions and No use of accessory muscles AUSCULTATION: crackles and wheezes Cardio: COMMON NORMALS: regular rhythm, S1 normal heart sound present and S2 normal heart sound present RATE: tachycardic RHYTHM: regular rhythm HEART SOUNDS: S1 normal heart sound present and S2 normal heart sound present GI: INSPECTION: Yes abdominal distension AUSCULTATION: Yes Hypoactive bowel sounds present Extremity: COMMON NORMALS: no pedal edema Neuro: SENSORIUM/ORIENTATION: Yes oriented to person, No oriented to place and No oriented to time Psych: COMMON NORMALS: mental status grossly normal Urinary Catheter Management: Estevez: Cath Placed During This Visit: yes Reason for Continuing Indwelling Catheter: Hospice/Comfort/Palliative Care Urinary Catheter Date of Insertion: 09/27/23 Urinary Catheter Time of Insertion: 12:06 Discharge Data Studies Completed and Pending Completed Studies During Hospitalization Category [place] [id number] Stat Cat Scan 09/27/23 14:00 Completed XR chest 1V portable [id number] Stat Exams 09/27/23 11:16 Completed XR hip BI 2V wo/[place] [id number] Routine Exams 09/27/23 17:32 Completed Pending at discharge Category Date Time Status ABO/Rh Type Routine Lab 09/28/23 00:25 Results Albumin Body Fluid Routine Lab 09/27/23 17:32 Ordered Amylase Body Fluid Routine Lab 09/27/23 17:32 Ordered Anaerobic Culture Routine Lab 09/27/23 17:32 Ordered Blood Cultures ([facility]) Routine Lab 09/27/23 17:02 Received Blood Cultures ([facility]) Routine Lab 09/27/23 17:05 Received Body Fluid Analysis Routine Lab 09/27/23 17:32 Ordered Body Fluid Culture & GS Routine Lab 09/27/23 17:32 Ordered Body Fluid Specific Morton Routine Lab 09/27/23 17:32 Ordered Cholesterol Body Fluid Routine Lab 09/27/23 17:32 Ordered Complete Crossmatch Routine Lab 09/28/23 00:25 Results Cyto Order Verification Routine Lab 09/27/23 17:32 Ordered Fluid Alkaline Phos. Routine Lab 09/27/23 17:32 Ordered Frozen Plasma FZ <24 1st Cont Routine Lab 09/28/23 00:25 Results Glucose Body Fluid Routine Lab 09/27/23 17:32 Ordered LDH Body Fluid Routine Lab 09/27/23 17:32 Ordered Mycobacteria, Culture w/Fluor Routine Lab 09/27/23 17:32 Ordered PACKED CELLS [Leukocyte Reduced RBC] Routine Lab 09/28/23 00:25 Results Total Protein Body Fluid Routine Lab 09/27/23 17:32 Ordered Triglycerides Body Fluid Routine Lab 09/27/23 17:32 Ordered Type and Screen Routine Lab 09/28/23 00:25 Results Uric Acid Body Fluid Routine Lab 09/27/23 17:32 Ordered pH Body Fluid Routine Lab 09/27/23 17:32 Ordered Radiology Impressions Hip/Pelvis X-Ray 09/27/23 17:32 IMPRESSION: No acute findings. Laboratory Results WBC 19.53 10^3/uL (3.29-11.43) H 09/28/23 06:54 RBC 2.67 10^6/uL (3.85-5.65) L 09/28/23 06:54 Hgb 9.10 g/dL (11.27-16.99) L 09/28/23 09:20 Hct 27.4 % (37-53) L 09/28/23 09:20 MCV 100.7 fl (82-101) 09/28/23 06:54 MCH 34.1 pg (27-33) H 09/28/23 06:54 MCHC 33.8 g/dL (30-55) 09/28/23 06:54 RDW 18.5 % (12.1-15.1) H 09/28/23 06:54 Plt Count 55 10^3/cmm (157-399) L 09/28/23 06:54 MPV 11.6 fL (7.4-10.4) H 09/28/23 06:54 Neut % (Auto) 85.2 % 09/28/23 06:54 Lymph % (Auto) 8.8 % 09/28/23 06:54 [place] % (Auto) 3.9 % 09/28/23 06:54 Eos % (Auto) 0.2 % 09/28/23 06:54 Baso % (Auto) 0.2 % 09/28/23 06:54 Neut # (Auto) 16.66 10^3/uL (1.8-7.7) H 09/28/23 06:54 Lymph # (Auto) 1.7 10^3/uL (0.8-4.8) 09/28/23 06:54 [place] # (Auto) 0.8 10^3/uL (0.2-0.9) 09/28/23 06:54 Eos # (Auto) 0.0 10^3/uL (0.0-0.8) 09/28/23 06:54 Baso # (Auto) 0.0 10^3/uL (0.0-0.1) 09/28/23 06:54 Nucleated RBC % (auto) 0 % 09/28/23 06:54 Nucleated RBCs # 0.0 /100WBC 09/28/23 06:54 PT 31.10 SECONDS (12.1-14.9) H 09/28/23 06:54 INR 2.86 (0.8-1.2) H 09/28/23 06:54 APTT 57.1 SECONDS (23.9-36.7) H 09/28/23 06:54 Specimen Type Arterial 09/27/23 16:27 Sample Site Radial, left 09/27/23 16:27 ABG pH 7.41 (7.35-7.45) 09/27/23 16:27 ABG pCO2 27.5 mmHg (35-45) L 09/27/23 16:27 ABG pO2 69.2 mmHg (80.0-100.0) L 09/27/23 16:27 ABG PO2/FiO2 Ratio 0 09/27/23 16:27 ABG HCO3 17.4 mmol/L (22-26) L 09/27/23 16:27 ABG Base Excess -6.6 mmol/L (-2.0-2.0) L 09/27/23 16:27 Destin Test Pos 09/27/23 16:27 Hematocrit 21.6 % (42-52) L 09/27/23 16:27 O2 Delivery Device Room air 09/27/23 16:27 FiO2 21.0 % 09/27/23 16:27 Group Exercise Instructor ID Cak 09/27/23 16:27 Sodium 130 mmol/L (136-145) L 09/28/23 06:54 Potassium 5.2 mmol/L (3.5-5.1) H 09/28/23 06:54 Chloride 96 mmol/L (98-107) L 09/28/23 06:54 Carbon Dioxide 16 mmol/L (22-29) L 09/28/23 06:54 Anion Gap 23.2 (5-19) H 09/28/23 06:54 BUN 98 mg/dL (8-23) H* 09/28/23 06:54 Creatinine 6.1 mg/dL (0.7-1.2) H* 09/28/23 06:54 GFR Calculation 9.4 mL/min (90-130) L 09/28/23 06:54 Glucose 155 mg/dL (65-115) H 09/28/23 06:54 POC Glucose 133 mg/dL (70-110) H 09/28/23 11:07 Estimat Average Glucose 74 09/27/23 17:02 Hemoglobin A1c 4.2 % (4.0-6.0) 09/27/23 17:02 Calculated Osmolality 304 mOsm/kg (285-295) H 09/28/23 06:54 Lactic Acid 4.6 mmol/L (0.5-2.2) H* 09/27/23 17:02 Lactic Acid (Sepsis) 3.3 mmol/L (0.5-2.2) H 09/27/23 20:04 Calcium 7.8 mg/dL (8.5-10.5) L 09/28/23 06:54 Phosphorus 6.5 mg/dL (2.5-4.5) H 09/28/23 06:54 Magnesium 2.2 mg/dL (1.7-2.3) 09/28/23 06:54 Iron 53 ug/dL (59-158) L 09/27/23 17:02 Iron Cancelled 09/27/23 17:02 TIBC 72 mcg/dl 09/27/23 17:02 % Saturation 73.6 % (20-50) H 09/27/23 17:02 Unsat Iron Binding 19 ug/dL (112-347) L 09/27/23 17:02 Ferritin 1577 ng/mL (30-400) H 09/27/23 17:02 Total Bilirubin 5.6 mg/dL (0.15-1.2) H 09/28/23 06:54 Direct Bilirubin 3.00 mg/dL (0.00-0.30) H 09/27/23 17:02 Indirect Bilirubin 1.60 09/27/23 17:02 GGT 18 U/L (8-61) 09/27/23 17:02 AST 60 U/L (0-40) H 09/28/23 06:54 ALT 25 U/L (0-41) 09/28/23 06:54 Alkaline Phosphatase 111 U/L (40-130) 09/28/23 06:54 Ammonia 46 umol/L (16-60) 09/28/23 06:54 Creatine Kinase 50 U/L (39-308) 09/28/23 06:54 Troponin T Baseline 30 ng/L (0-15) H 09/27/23 17:02 Troponin T 120 Minute 28.66 ng/L (0-15) H 09/27/23 18:54 Delta Troponin T -1.34 ABS# (0-10) L 09/27/23 18:54 Troponin T Hi Sens 6Hr 32.78 ng/L (0-15) H 09/27/23 22:54 Troponin T Hi Sens 6Hr Delta 2.78 ng/L (0-12) 09/27/23 22:54 C-Reactive Protein 91.6 mg/L (0.0-4.9) H 09/28/23 06:54 NT-Pro-B Natriuret Pep 5724 pg/mL (0-125) H 09/28/23 06:54 Total Protein 6.5 g/dL (6.6-8.7) L 09/28/23 06:54 Albumin 2.6 g/dL (3.5-5.2) L 09/28/23 06:54 Globulin 3.9 g/dL (1.3-4.6) 09/28/23 06:54 Prealbumin 3.0 mg/dL (20-40) L 09/27/23 17:02 Prealbumin Cancelled 09/27/23 17:02 Lipase 24 U/L (13-60) 09/27/23 17:02 Procalcitonin 2.03 ng/mL (0-0.5) H 09/28/23 06:54 TSH 4.33 uIU/mL (0.27-4.20) H 09/27/23 17:02 Urine Color Dark yellow (Yellow) 09/27/23 12:28 Urine Appearance Clear (CLEAR) 09/27/23 12:28 Urine pH 5 (5-7) 09/27/23 12:28 Ur Specific Morton 1.020 (1.005-1.030) 09/27/23 12:28 Urine Protein Trace (Negative) 09/27/23 12:28 Urine Glucose (UA) Norm (Normal) 09/27/23 12:28 Urine Ketones Negative (Negative) 09/27/23 12:28 Urine Blood 3+ (Negative) H 09/27/23 12:28 Urine Nitrate Negative (Negative) 09/27/23 12:28 Urine Bilirubin 1+ (Negative) H 09/27/23 12:28 Urine Urobilinogen 1 mg/dL (Negative) H 09/27/23 12:28 Ur Leukocyte Esterase Negative (Negative) 09/27/23 12:28 Urine RBC 40-50 /hpf (0-2) H 09/27/23 12:28 Urine WBC 0-4 /hpf (0-5) H 09/27/23 12:28 Ur Squamous Epith Cells 0-4 /hpf (0-5) H 09/27/23 12:28 Amorphous Sediment Trace /hpf 09/27/23 12:28 Urine Bacteria Trace /hpf (NONE) 09/27/23 12:28 Hyaline Casts 0-4 /lpf H 09/27/23 12:28 Urine Mucus 1+ /hpf 09/27/23 12:28 Ur Random Sodium 21 mmol/L 09/28/23 22:00 Urine Creatinine 158 mg/dL (39-259) 09/28/23 22:00 Blood Type O Positive 09/28/23 00:25 Rho(D) Type Rh positive 09/28/23 00:25 Antibody Screen Negative 09/28/23 00:25 Crossmatch See Detail 09/28/23 00:25 Vitals Last Vital Signs Temp 97.4 F L 09/29/23 11:32 Pulse 82 09/29/23 11:42 Resp 18 09/29/23 11:32 BP 108/66 09/29/23 11:32 Pulse Ox 95 09/29/23 11:42 O2 Del Method Nasal Cannula 09/29/23 11:42 O2 Flow Rate 2 09/29/23 11:42 Discharge Plan Discharge Patient Disposition: Hospice - Medical Facility Condition: Stable Prescriptions: New atropine 1 % Drops 3 drp sublingual Q4H PRN (Reason: Excessive Secretions, Rattling) 30 Days Qty: 15 0RF morphine 20 mg/5 mL (4 mg/mL) solution 1 mg PO Q2H PRN (Reason: dyspnea or pain) 7 Days Qty: 100 0RF Lorazepam Intensol 2 mg/mL concentrate 0.5 mg PO Q2H PRN (Reason: agitation or anxiety or pain or seizures) 7 Days Qty: 30 0RF Discontinued pantoprazole 40 mg Tablet,Delayed Release (Dr/Ec) 40 mg PO BID Qty: 60 0RF folic acid 1 mg Tablet 1 mg PO DAILY Qty: 30 0RF furosemide 20 mg Tablet 20 mg PO DAILY@0800 Qty: 30 0RF thiamine mononitrate (vit B1) [Vitamin B-1 (mononitrate)] 100 mg Tablet 100 mg PO DAILY Qty: 30 0RF midodrine 5 mg tablet 7.5 mg PO TID Qty: 135 0RF Rx Instructions: do not give last dose of day after 6PM or within 4 hrs of bedtime tramadol 50 mg tablet 50 mg PO TID PRN (Reason: pain) Qty: 20 0RF magnesium hydroxide [Milk of Magnesia] 400 mg/5 mL Suspension 30 ml PO DAILY PRN (Reason: Constipation) bisacodyl [Dulcolax (bisacodyl)] 10 mg Suppository 10 mg AL DAILY PRN (Reason: Constipation) No Action (DME) SHOULDER IMMOBILIZER See Rx Instructions .ROUTE .MEDSUPPLY Qty: 1 0RF Rx Instructions: As directed (DME) arm sling See Rx Instructions .Route .MEDSUPPLY Qty: 1 0RF Rx Instructions: As directed Discharge Orders: Discharge Order (Routine); Ordered 09/29/23 Ordered By: Cornell Campos Referrals: Nancy Benavides MD [Primary Care Provider] - Discharge Diet: Regular Discharge Activity: Resume usual activity Patient Instructions: Hospice Care (GEN), GI Discharge Instructions Discharge Attestations Time Spent in Discharge Care*: greater than 30 min Quality Metrics Clinical Quality Measures [ No reported AMI, CVA or VTE this stay] Coding Level of Care Code 59696 Total time (in minutes) for Discharge: 45 Diagnoses Upper GI bleed K92.2 Spontaneous bacterial peritonitis K65.2 Sepsis A41.9 Cirrhosis K74.60 Elevated bilirubin R17 Thrombocytopenia D69.6 Elevated INR R79.1 Hepatorenal syndrome K76.7 Acute renal failure N17.9 Lactic acidosis E87.20 Metabolic acidosis E87.20 Anemia D64.9 Shock R57.9 Hyponatremia E87.1 Uremia N19 Acute encephalopathy G93.40 Hypoalbuminemia E88.09
--- NOTE | 2023-09-29 15:42 | P.PN_ITS ---
Subjective 2 Subjective: Patient was seen this morning, he is alert to person, not to place, not to time, it is difficult for him to follow commands, he is quite encephalopathic, Vitals/I&O/Wt Last Vital Signs Temp 97.4 F L 09/29/23 11:32 Pulse 83 09/29/23 14:00 Resp 18 09/29/23 11:32 BP 108/66 09/29/23 11:32 Pulse Ox 95 09/29/23 11:42 O2 Del Method Nasal Cannula 09/29/23 11:42 O2 Flow Rate 2 09/29/23 11:42 09/29/23 09/29/23 09/29/23 06:59 14:59 22:59 Output Total 100 / 100 Balance -100 / 0 Weight last 48 hrs Weight 86.682 kg Weight 87.543 kg Weight 87.203 kg Physical Exam 2 Const: COMMON NORMALS: no acute distress ORIENTATION/CONSCIOUSNESS: Yes awake, Yes oriented to person and Yes confused; not oriented to place and not oriented to time Resp: COMMON NORMALS: normal respiratory effort, No retractions and No use of accessory muscles Cardio: COMMON NORMALS: regular rate, regular rhythm, S1 normal heart sound present and S2 normal heart sound present RATE: regular rate RHYTHM: r egular rhythm HEART SOUNDS: S1 normal heart sound present and S2 normal heart sound present GI: OTHER: Abdomen soft, distended, scattered bowel sounds Extremity: COMMON NORMALS: no pedal edema Neuro: SENSORIUM/ORIENTATION: Yes oriented to person, No oriented to place and No oriented to time Psych: COMMON NORMALS: mental status grossly normal Urinary Catheter Management: Estevez: Cath Placed During This Visit: yes Reason for Continuing Indwelling Catheter: Hospice/Comfort/Palliative Care Urinary Catheter Date of Insertion: 09/27/23 Urinary Catheter Time of Insertion: 12:06 Data 09/28/23 09:20 09/28/23 06:54 Micro: Microbiology 09/27/23 17:05 Blood Culture - Preliminary Blood 09/27/23 17:02 Blood Culture - Preliminary Blood A&P Assessment and plan (1) Upper GI bleed: (2) Spontaneous bacterial peritonitis: (3) Sepsis: (4) Cirrhosis: (5) Elevated bilirubin: (6) Thrombocytopenia: (7) Elevated INR: (8) Hepatorenal syndrome: (9) Acute renal failure: (10) Lactic acidosis: (11) Metabolic acidosis: (12) Anemia: (13) Shock: (14) Hyponatremia: (15) Uremia: (16) Acute encephalopathy: (17) Hypoalbuminemia: Plan Patient will be transitioning to hospice/comfort care, for acute decompensated liver failure, with acute renal failure with hepatorenal syndrome with sepsis septic shock, concerns for Staph aureus UTI concerns for spontaneous bacterial peritonitis, acute encephalopathy, elevated INR, elevated troponins, deconditioned status, uremia, hyponatremia, Upper GI bleed -The complaint by the fpc the reason he was sent over, was due to concerns for bleeding, initially thought to be nosebleed, ? On examination his posterior pharynx is narrow pharynx is caked in the thick viscous black tarry fluid, I also observed in the posterior pharynx, he has thick black tarry fluid, -And almost seems like he has had black tarry emesis -INR is 2, hemoglobin 9.4, platelet count 55,000, CT scan abdomen pelvis no significant evidence of varices, does have liver cirrhosis, no history of alcoholism in the last year ? Plan, ? N.p.o., ? General surgery consulted for consideration of EGD, ? Monitor hemoglobin every 4 hours -Monitor INR ? Monitor hemodynamics, ? Protonix ?Carafate, ? Octreotide, -Avoid all blood thinners Acute encephalopathy ?ammonia levels pending ? Uremia ? Neurochecks, aspiration precautions, ? Will monitor mentation closely, ? Possible SBP, sepsis Abdomen distended, complains of abdominal pain, leukocytosis, elevated lactic acid, elevated Pro-Michael - Concerns for spontaneous bacterial peritonitis ? Plan, ? Ordered ascites studies - start meropenem Nelia ? Start albumin, ? Serial abdominal exams, ? Monitor cultures, blood cultures, ? Ascites cultures Staph aureus UTI, ? During last hospitalization had Staph aureus UTI, which is quite concerning -Will start on Zyvox Shock -Some component related to hypoalbuminemia, liver cirrhosis, ? Concerns for septic shock given concern for spontaneous bacterial peritonitis, ? Also concern for upper GI bleed, ? Receiving albumin therapy, -Is receiving midodrine, ? Maintain MAP greater than 65, ? Start Levophed therapy Uremia ?Likely associated with upper GI bleed ?also component of renal failure, Acute renal failure ? Has evidence of acute renal failure ? Likely related to shock, sepsis,'s history of Staph aureus UTI SBP upper GI bleed, complex ?possibly component of hepatorenal syndrome ? Monitor urine output, -Is receiving albumin therapy, ? Receiving midodrine, pressor therapy ? Nephrology consulted Hyponatremia ? Likely related to liver cirrhosis, monitor mentation Elevated lactic acid ? Likely secondary to as above Liver cirrhosis, ? Bilirubin 5.1, INR 2.31, creatinine 5.9, albumin 2.3 ? MELD score 35 points, estimated 3-month mortality 52.6 Patient's prognosis is guarded, status is critical, # Full code, ? SCDs for DVT prophylaxis Spoke to ER provider, spoke to nursing staff, spoke to retirement facility, spoke to general surgery, spoke to nephrology Attestations 2 Medical Necessity Statement*: Patient requires hospitalization for inpatient comfort care Diagnoses Upper GI bleed K92.2 Spontaneous bacterial peritonitis K65.2 Sepsis A41.9 Cirrhosis K74.60 Elevated bilirubin R17 Thrombocytopenia D69.6 Elevated INR R79.1 Hepatorenal syndrome K76.7 Acute renal failure N17.9 Lactic acidosis E87.20 Metabolic acidosis E87.20 Anemia D64.9 Shock R57.9 Hyponatremia E87.1 Uremia N19 Acute encephalopathy G93.40 Hypoalbuminemia E88.09
--- NOTE | 2023-09-29 17:04 | PC.NURSE ---
Spoke with Judy at [facility] assigned to ride. ETA approximately 6pm
--- NOTE | 2023-09-29 18:22 | PC.NURSE ---
CN and this nurse went to assist transfer to EMS stretcher, entered room and noted pt without pulse and respirations. Passed at 1811.
--- NOTE | 2023-09-29 19:04 | PC.NURSE ---
Brother Moe Resendiz notified of patient's passing at 1901. Verbal consent to transfer body to [facility]
--- NOTE | 2023-09-29 19:50 | PC.NURSE ---
MTS coordinator Adri called at this time and states that patient is not a candidate for their services. Holding for [facility] currently. [employer] Supervisor MARITZA Jade notified.
--- NOTE | 2023-09-30 00:01 | PC.NURSE ---
Mervat time @ 191 [facility] released body @ 1017 Body released to Radha Campbell @ [phone]
--- NOTE | 2023-10-01 15:30 | P.DES_ITS ---
Discharge Providers DDS Date of Admission: 09/27/23 15:59 Date Summary Completed: 10/10/23 Attending Provider at Admission: Cornell Camops MD Attending Provider at Discharge: Cornell Campos MD Primary Care Provider: Nancy Benavides MD DS Diagnoses Hospital Diagnoses (1) Upper GI bleed: (2) Spontaneous bacterial peritonitis: (3) Sepsis: (4) Cirrhosis: (5) Elevated bilirubin: (6) Thrombocytopenia: (7) Elevated INR: (8) Hepatorenal syndrome: (9) Acute renal failure: (10) Lactic acidosis: (11) Metabolic acidosis: (12) Anemia: (13) Shock: (14) Hyponatremia: (15) Uremia: (16) Acute encephalopathy: (17) Hypoalbuminemia: Reason for Visit Reason for Visit Gen Weakness Summary Summary Summary: Jase Resendiz is a 63 year old male with a known history of liver cirrhosis, history of pancytopenia, history of alcoholism, history of hyperlipidemia recent hospitalization for fall and hyponatremia, who presents to [facility] due to abnormal blood work I was told by ER physician, in the emergency room, he was found to have lactic acid of 3.4, Pro-Michael 2.54, INR of 2.31, sodium 126, BUN 100, creatinine 5.9, WBC 13.98, platelet count 57,000, hemoglobin 9.4, I had advised ER provider to order a CT scan of the abdomen, workup for sepsis, given his history of liver cirrhosis concerns for possible SBP, I saw that he was recently hospitalized for Staph aureus UTI which is quite unusual, to start him on broad-spectrum antibiotic therapy meropenem, Zyvox, fluid therapy, blood p ressures are soft if Levophed is needed I advise ER provider to give it to him, and order stat CT scan. Patient was seen thereafter, on examination, patient is alert to person, not to place, not to time, his oral pharynx and nasopharynx is caked in thick coffee ground fluid, he tells me that he has been having the prison thought initial nosebleeds, but now it is in his mouth, when I asked him explicitly has not been vomiting this up, he denies it, but his oropharynx on examination his posterior pharynx, his nasopharynx is caked in coffee-ground viscous fluid, it seems like, if he ground emesis, I asked him if he had a history of esophageal varices, I was not able to get a straightforward answer from him, currently blood pressure is 99/60, pulse 90, respiratory 20, saturating 96% on room air, his hemoglobin is stable compared to the his last admission, platelet count stable, INR is elevated, I asked him if he was on any blood thinners he denied this, his BUN is 100, creatinine is 5.9 [place] [facility] [place] that patient was having coffee- ground bloody noses, which she thought initially was nosebleed, but then his oropharynx was covered in this coffee-ground liquid, so they thought he might be having some sort of bleeding, so they sent him to the ER for evaluation, there were also worried about his mentation, his weakness, Patient was admitted to [facility] for sepsis, septic shock, spontaneous bacterial peritonitis, acute renal failure, with hepatorenal syndrome, hyponatremia, elevated lactic acid, abdominal distention, acute encephalopathy, acute decompensated liver failure, GI bleed. Patient was monitored in ICU, received breast antibiotic therapy, medical management, nephrology was consulted, general surgery was consulted. Due to patient's acute decompensated liver failure, elevated INR, hepatorenal syndrome, septic shock, spotty karen peritonitis, extensive discussion with patient and family about continue medical intervention consideration of dialysis paracentesis, EGD, consideration transfer for liver transplant versus comfort care. After discussion of the risk and benefits of all options, shared decision making, all questions answered, patient and family agreed to comfort care. Patient was monitored inpatient for comfort care, with plans on discharging to intermediate facility on comfort care. Just before patient could be transferred to intermediate facility, nursing staff went into patient's room with EMS to assist in transferring to intermediate facility, patient was found without a pulse and respiration, patient as inpatient, on comfort care time of [id number]/29/2023. Additional Data Confirmation of as documented by pronouncing clinician: no pulse and no respirations Family: contacted Additional persons at bedside: nursing staff Attending/PCP notified?: I am attending Was code activated?: No Autopsy requested?: No Advance directives?: Yes Discharge Plan Discharge Patient Disposition: Hospice - Medical Facility Condition: Stable Prescriptions: New atropine 1 % Drops 3 drp sublingual Q4H PRN (Reason: Excessive Secretions, Rattling) 30 Days Qty: 15 0RF Discontinued pantoprazole 40 mg Tablet,Delayed Release (Dr/Ec) 40 mg PO BID Qty: 60 0RF folic acid 1 mg Tablet 1 mg PO DAILY Qty: 30 0RF furosemide 20 mg Tablet 20 mg PO DAILY@0800 Qty: 30 0RF thiamine mononitrate (vit B1) [Vitamin B-1 (mononitrate)] 100 mg Tablet 100 mg PO DAILY Qty: 30 0RF midodrine 5 mg tablet 7.5 mg PO TID Qty: 135 0RF Rx Instructions: do not give last dose of day after 6PM or within 4 hrs of bedtime tramadol 50 mg tablet 50 mg PO TID PRN (Reason: pain) Qty: 20 0RF magnesium hydroxide [Milk of Magnesia] 400 mg/5 mL Suspension 30 ml PO DAILY PRN (Reason: Constipation) bisacodyl [Dulcolax (bisacodyl)] 10 mg Suppository 10 mg OH DAILY PRN (Reason: Constipation) No Action (DME) SHOULDER IMMOBILIZER See Rx Instructions .ROUTE .MEDSUPPLY Qty: 1 0RF Rx Instructions: As directed (DME) arm sling See Rx Instructions .Route .MEDSUPPLY Qty: 1 0RF Rx Instructions: As directed Discharge Orders: Discharge Order (Routine); Ordered 09/29/23 Ordered By: Cornell Campos Referrals: Nancy Benavides MD [Primary Care Provider] - Discharge Diet: Regular Discharge Activity: Resume usual activity Patient Instructions: Hospice Care (GEN), GI Discharge Instructions DS Attestations Time Spent in /Discharge Care*: greater than 30 min Quality - AMI: AMI present?: No Quality - Stroke: CVA present?: No Symptom Onset Unknown: No Quality - VTE: VTE present?: No Deep Vein Thrombosis/Pulmonary Embolism Present on Admission: No Coding Level of Care Code 50367 Total time (in minutes) for Discharge: 45 Diagnoses Upper GI bleed K92.2 Spontaneous bacterial peritonitis K65.2 Sepsis A41.9 Cirrhosis K74.60 Elevated bilirubin R17 Thrombocytopenia D69.6 Elevated INR R79.1 Hepatorenal syndrome K76.7 Acute renal failure N17.9 Lactic acidosis E87.20 Metabolic acidosis E87.20 Anemia D64.9 Shock R57.9 Hyponatremia E87.1 Uremia N19 Acute encephalopathy G93.40 Hypoalbuminemia E88.09
== END 2023-09-29 19:10 | disposition expired | DRG 871 ==
LOC: ER 15:21 → ICU 16:00 → MEDSURG 09-28 19:32
PROVIDERS: Internal Medicine; Admitting Provider Family Medicine; Emergency Provider Internal Medicine; PCP Family Medicine; Visit Provider Family Medicine
DX: A41.9 Sepsis, unspecified organism (principal); G93.41 Metabolic encephalopathy; R65.21 Severe sepsis with septic shock; K65.2 Spontaneous bacterial peritonitis; K72.00 Acute and subacute hepatic failure without coma; K76.7 Hepatorenal syndrome; N17.9 Acute kidney failure, unspecified; E87.1 Hypo-osmolality and hyponatremia; E87.20 Acidosis, unspecified; K92.2 Gastrointestinal hemorrhage, unspecified; N39.0 Urinary tract infection, site not specified; Z51.5 Encounter for palliative care; D64.9 Anemia, unspecified; D69.6 Thrombocytopenia, unspecified; B95.61 Methicillin susceptible Staphylococcus aureus infection as the cause of diseases classified elsewhere; F10.21 Alcohol dependence, in remission; K74.60 Unspecified cirrhosis of liver; K76.82 Hepatic encephalopathy; K72.10 Chronic hepatic failure without coma; F17.210 Nicotine dependence, cigarettes, uncomplicated; F17.220 Nicotine dependence, chewing tobacco, uncomplicated; E78.5 Hyperlipidemia, unspecified; F32.A Depression, unspecified
CPT/HCPCS: 36415; 36416; 36430; 36600; 51702; 71045; 71250; 73521; 74176; 80053; 81001; 82140; 82247; 82248; 82550; 82575; 82728; 82803; 82962; 82977; 83036; 83540; 83550; 83605; 83690; 83735; 83880; 84100; 84134; 84145; 84300; 84443; 84484; 85014; 85018; 85025; 85610; 85730; 86140; 86850; 86900; 86920; 87040; 93005; 94664; 96365; 96366; 96367; 99291; A4222; C9113; J0283; J1170; J2020; J2185; J2270; J2354; J7030; P9040; P9046